=== PATIENT | male | born 1955 | race Caucasian/White ===

== ENCOUNTER 2023-12-26 13:29 | Emergency (ER) | payer MEDICARE, OTHER, SELFPAY ==
[2023-12-26 13:35] VITALS: BP 150/99
[2023-12-26 14:03] LABS: % Basophils 0.9 % (0-2); % Eosinophils 2.7 % (0-6); % Immature Granulocytes 0.3 % (0-0.5); % Lymphocytes 21.6 % (20.5-51.1); % Monocytes 7.9 % (1.7-9.3); % Neutrophils 66.6 % (42.2-75.2); Absolute Basophils 0.1 10^3/uL (0-0.2); Absolute Eosinophils 0.2 10^3/uL (0-0.7); Absolute Lymphocytes 1.9 10^3/uL (1.2-3.4); Absolute Monocytes 0.7 10^3/uL (0.1-0.6); Absolute Neutrophils 5.8 10^3/uL (1.4-6.5); Hematocrit 41.3 % (39.0-52.0); Hemoglobin 14.1 g/dL (13.0-18.0); Mean Corp Hgb Conc. 34.1 g/dL (33.0-37.0); Mean Corpuscular Hgb 32.9 pg (27.0-31.0); Mean Corpuscular Volume 96.3 fL (80.0-94.0); Mean Platelet Volume 9.9 fL (7.4-10.4); Nucleated Red Blood Cells % 0 % (-); Platelet Count 190 10^3/uL (130-400); Red Blood Cell Count 4.29 10^6/uL (4.70-6.10); Red Cell Dist. Width 12.7 % (11.5-14.5); White Blood Cell Count 8.7 10^3/uL (4.8-10.8)
[2023-12-26 14:15] LABS: ALT (SGPT) 38 U/L (0-50); AST (SGOT) 33 U/L (17-59); Albumin 4.4 g/dl (3.5-5.0); Alkaline Phosphatase 103 U/L (38-126); Blood Urea Nitrogen 14 mg/dl (9-20); Calcium 10.3 mg/dl (8.4-10.2); Carbon Dioxide 27 mmol/L (22-30); Chloride 107 mmol/L (98-107); Glucose 99 mg/dl (70-99); Potassium 4.6 mmol/L (3.5-5.1); Sodium 140 mmol/L (135-145); Total Bilirubin 0.8 mg/dl (0.2-1.3); Total Protein 6.6 g/dl (6.3-8.2); eGFR > 60.00
[2023-12-26 14:26] LABS: Troponin I 0.017 ng/ml
== END 2023-12-26 15:37 | disposition left against medical advice (07) ==
LOC: EMR 13:29
PROVIDERS: EMERGENCY PHYSICIAN Emergency Medicine
DX: R07.9 Chest pain, unspecified (principal); Z53.29 Procedure and treatment not carried out because of patient's decision for other reasons; I25.2 Old myocardial infarction
CPT/HCPCS: 80053; 84484; 85025; 93005

== ENCOUNTER → 2024-02-01 16:01 | Outpatient (REF) | payer MEDICARE, OTHER, SELFPAY | LOC: RAD 16:01 | PROVIDERS: ATTENDING PHYSICIAN Family Medicine | DX: J22 Unspecified acute lower respiratory infection (principal) | CPT/HCPCS: 71046 ==

== ENCOUNTER 2024-03-15 06:16 | Day surgery (SDC) | payer MEDICARE, OTHER, SELFPAY ==
[2024-03-15 08:30] VITALS: BMI 47.2
[2024-03-15] MEDS: NORMOSOL-R/PLASMALYTE-A 1000 IV (08:40)
[2024-03-15 08:45] VITALS: BP 163/95; BMI 47.2
[2024-03-15] MEDS: NEOMYCIN ENEMA 1 BOTTLE RECTAL (08:48)
[2024-03-15 10:45] VITALS: BP 163/95
[2024-03-15] MEDS: TORADOL 30 MG IV (11:35)
[2024-03-15 11:40] VITALS: BP 146/67
[2024-03-15 12:12] VITALS: BP 141/72
[2024-03-15 12:45] VITALS: BP 138/68
== END 2024-03-15 13:02 | disposition home or self-care (01) ==
LOC: SDS 06:16
PROVIDERS: ATTENDING PHYSICIAN Specialist
DX: C61 Malignant neoplasm of prostate (principal)
CPT/HCPCS: 55700; 76998; 88305; 88344

== ENCOUNTER → 2024-03-30 09:49 | Outpatient (REF) | payer MEDICARE, OTHER, SELFPAY | LOC: RAD 09:49 | PROVIDERS: ATTENDING PHYSICIAN Specialist; FAMILY PHYSICIAN Family Medicine | DX: C61 Malignant neoplasm of prostate (principal) | CPT/HCPCS: 78306; A9503 ==

== ENCOUNTER → 2024-04-27 17:10 | Outpatient (REF) | payer MEDICARE, OTHER, SELFPAY | LOC: MRI 3T 17:10 | PROVIDERS: ATTENDING PHYSICIAN Specialist; FAMILY PHYSICIAN Family Medicine | DX: C61 Malignant neoplasm of prostate (principal) | CPT/HCPCS: 72197; A9575 ==

== ENCOUNTER 2024-06-14 06:55 | Day surgery (SDC) | payer MEDICARE, OTHER, SELFPAY ==
[2024-06-14 07:59] VITALS: BP 152/98
[2024-06-14 08:06] VITALS: BMI 49.4
[2024-06-14 08:22] LABS: Glucose - Point of Care 106 mg/dl (70-99)
[2024-06-14 08:24] VITALS: BMI 49.4
[2024-06-14 10:24] VITALS: BP 149/98
[2024-06-14 10:30] VITALS: BP 151/88
[2024-06-14 10:45] VITALS: BP 155/99
== END 2024-06-14 11:04 | disposition home or self-care (01) ==
LOC: SDS 06:55
PROVIDERS: ATTENDING PHYSICIAN Internal Medicine Gastroenterology
DX: Z12.11 Encounter for screening for malignant neoplasm of colon (principal); D12.2 Benign neoplasm of ascending colon; D12.3 Benign neoplasm of transverse colon; K62.1 Rectal polyp; C61 Malignant neoplasm of prostate; Z86.0101 Personal history of adenomatous and serrated colon polyps; Z80.0 Family history of malignant neoplasm of digestive organs
CPT/HCPCS: 45385; 45380; 88305; 82962

== ENCOUNTER 2024-06-15 06:27 | Day surgery (SDC) | payer MEDICARE, OTHER, SELFPAY ==
[2024-06-15 10:43] VITALS: BMI 46.1
[2024-06-15 10:44] VITALS: BP 134/84; BMI 46.1
[2024-06-15 11:46] VITALS: BP 122/64
[2024-06-15 12:00] VITALS: BP 139/75
[2024-06-15 12:15] VITALS: BP 151/78
== END 2024-06-15 12:43 | disposition home or self-care (01) ==
LOC: SDS 06:27
PROVIDERS: ATTENDING PHYSICIAN Specialist
DX: D12.3 Benign neoplasm of transverse colon (principal); Z86.0101 Personal history of adenomatous and serrated colon polyps; K63.3 Ulcer of intestine
CPT/HCPCS: 45385; 88305

== ENCOUNTER → 2025-03-08 14:21 | Outpatient (REF) | payer MEDICARE, OTHER, SELFPAY | LOC: PAVMRI 14:21 | PROVIDERS: ATTENDING PHYSICIAN Anesthesiology; FAMILY PHYSICIAN Family Medicine | DX: M54.50 Low back pain, unspecified (principal) | CPT/HCPCS: 72148 ==

== ENCOUNTER → 2025-04-02 12:34 | Outpatient (REF) | payer MEDICARE, OTHER, SELFPAY | LOC: WOUND 12:34 | PROVIDERS: ATTENDING PHYSICIAN Surgery; FAMILY PHYSICIAN Family Medicine | DX: I87.311 Chronic venous hypertension (idiopathic) with ulcer of right lower extremity (principal); L97.211 Non-pressure chronic ulcer of right calf limited to breakdown of skin; E66.01 Morbid (severe) obesity due to excess calories; I25.2 Old myocardial infarction; M51.362 Other intervertebral disc degeneration, lumbar region with discogenic back pain and lower extremity pain | CPT/HCPCS: 99203 ==

== ENCOUNTER 2025-04-12 16:17 | Emergency (ER) | payer MEDICARE, OTHER, SELFPAY ==
[2025-04-12 16:29] VITALS: BP 104/70
[2025-04-12 17:21] LABS: Hematocrit 42.8 % (39.0-52.0); Hemoglobin 14.0 g/dL (13.0-18.0); Mean Corp Hgb Conc. 32.7 g/dL (33.0-37.0); Mean Corpuscular Volume 100.2 fL (80.0-94.0); Nucleated Red Blood Cells % 0 % (-); Platelet Count 191 10^3/uL (130-400); Red Cell Dist. Width 13.5 % (11.5-14.5)
[2025-04-12 17:40] LABS: ALT (SGPT) 149 U/L (0-50); AST (SGOT) 27 U/L (17-59); Albumin 4.3 g/dl (3.5-5.0); Alkaline Phosphatase 127 U/L (38-126); Blood Urea Nitrogen 18 mg/dl (9-20); Calcium 10.8 mg/dl (8.4-10.2); Carbon Dioxide 25 mmol/L (22-30); Chloride 107 mmol/L (98-107); Glucose 105 mg/dl (70-99); Potassium 4.3 mmol/L (3.5-5.1); Sodium 141 mmol/L (135-145); Total Protein 6.9 g/dl (6.3-8.2); eGFR > 60.00
[2025-04-12 18:54] VITALS: BMI 47.3
[2025-04-12 18:55] VITALS: BP 108/66
--- NOTE | 2025-04-12 19:12 | ED.GENMED ---
History of Present Illness
General
Chief Complaint: Male Genito-Urinary Symptoms
Source: patient
Exam Limitations: none
Time Seen by Provider: 04/12/25 18:25
Nursing documentation reviewed up to this point in time: agreed with
History of Present Illness
History of Present Illness:
Patient with history of kidney stones and BPH on Flomax, on aspirin 81 mg daily, presents to ED secondary to persistent hematuria associated with penile pain and frequency/urgency/dysuria, started this morning. Denies fever or chills. Patient has
had incomplete voiding sensation after urination. Denies abdominal pain. Denies nausea or vomiting. Denies trauma. Denies recent change in medications or diet. Denies previous history of similar symptoms. In the past with kidney stones,
patient has experienced flank pain, which he is not currently experiencing.
Past History
Past History
ED Past Medical History: CAD, HTN, Hypercholesterolemia, [place] (2006), Psychiatric (Anxiety), Other (Kidney stone) and Other (Chronic pain syndrome, narcotic dependent, arthritis, obesity)
ED Past Surgical History: Cardiac (PTCA with stent x2 RCA, 2006), Cholecystectomy and Orthopedic (Bilateral knee surgery, right femoral plate)
Social History
Tobacco: Non-smoker
Alcohol: None
Personal: Single
Living: with family (Sister.)
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
Family History
Family History: CAD
Review of Systems
Review of Systems
Allergies reviewed?: Yes
All Other Systems: ROS reviewed and negative except as documented in HPI and ROS
Constitutional: Reports no symptoms; Denies fever
ABD/GI: Denies abdominal pain or vomiting
: Reports dysuria, frequency, difficulty voiding and bleeding
Skin: Reports no symptoms
Neurological: Reports no symptoms
Phy Exam
Physical Exam
Physical Exam:
Physical Exam
General: mild distress, not acutely ill. afebrile
Head: nc/at. eomi
Neck: supple. normal range of motion
Abdomen: normal bowel sounds. not tender.
Neuro: alert and oriented x 3. no focal neurological deficits
Skin: no rash
Psychiatric: well kept. interactive and cooperative
Extremities: no edema. no calf tenderness.
Course
Orders/Labs/Results
Orders:
Orders
04/12/25 16:50
Complete Blood Count/With Diff Urgent
Comprehensive Metabolic Panel Urgent
04/12/25 19:00
Bladder Scan- Treatment ONCE
04/12/25 19:26
Gregory Placement- Treatment ONCE
Reason for insertion: Outlet obstruction
04/12/25 19:35
Lidocaine 2% [Lidocaine Uro-Jet 2%] 1 syringe .ROUTE .[facility]
04/12/25 19:58
Urinalysis Reflex To Culture Urgent
Date Specimen was Collected: 04/12/25
Time Specimen was Collected: 16:30
Urine Microscopic Reflex Cult Urgent
Urine Culture Urgent
YESIKA Source: U
Specimen Description:
Date Specimen was Collected: 04/12/25
Time Specimen was Collected: 16:30
04/12/25 20:17
Oxycodone [Roxicodone] 10 mg PO NOW STA
04/12/25 21:43
Cefdinir [Omnicef] 300 mg PO NOW STA
04/12/25 21:52
Phenazopyridine HCl [Pyridium] 200 mg PO NOW STA
04/12/25 22:12
Oxybutynin Chloride [Ditropan] 5 mg PO NOW STA
04/12/25 22:15
Oxycodone [Roxicodone] 10 mg PO NOW STA
Abnormal Lab Results
04/12/25 04/12/25
16:50 19:58
RBC 4.27 L 10^6/uL
(4.70-6.10)
MCV 100.2 H fL
(80.0-94.0)
MCH 32.8 H pg
(27.0-31.0)
MCHC 32.7 L g/dL
(33.0-37.0)
Absolute Lymphs (auto) 0.9 L 10^3/uL
(1.2-3.4)
Neutrophils % 76.3 H %
(42.2-75.2)
Lymphocytes % 13.9 L %
(20.5-51.1)
Glucose 105 H mg/dl
(70-99)
Calcium 10.8 H mg/dl
(8.4-10.2)
ALT 149 H U/L
(0-50)
Alkaline Phosphatase 127 H U/L
(38-126)
Ur Occult Blood Reflex 4+ A
(Negative)
Leukocyte Esterase Rfl 1+ A
(Negative)
Urine RBC 70-80 A /HPF
(0-2)
Urine Albumin (Reflex) 2+ A
(Neg - Trace)
04/12/25 16:50
04/12/25 16:50
Vital Signs
Initial and Last Documented VS:
Initial Vital Signs
Temp
98.1 F
04/12/25 16:27
Last Documented Vital Signs
Temp Pulse Resp BP Pulse Ox
98.1 F 68 20 120/75 96
04/12/25 16:27 04/12/25 22:02 04/12/25 22:02 04/12/25 22:02 04/12/25 22:02
MDM/Problems Addressed
MDM/Problems Addressed:
CBI started in ED secondary to concern for urinary retention secondary to an outlet obstruction. Fortunately, after insertion of CBI, only clear drainage noted in the catheter, without any disruption with continuous flow. Urinalysis with RBCs,
without any bacteria. Difficult to exclude potential infection, i.e. prostatitis. No indication to continue Gregory catheter/CBI at this time. As such, CBI will be discontinued and patient will be started on Omnicef, with recommendation to
follow-up with his urology as an outpatient. Return precautions provided, i.e. fever/chills/vomiting/inability to urinate. Patient expresses understanding, at time of discharge, to the care of his family.
*Pulse Oximetry
SaO2: 95
Oxygen Mode of Delivery: Room air
Patient hypoxic: no
*Critical Care Note
Total Time (30-74mins, 75-104mins- exclusive of procedures): Not Applicable
ED Attending Note
-
Portions of this chart may have been created with voice recognition software.� Occasional wrong word or��sound alike� substitutions may have occurred due to the inherent limitations of voice recognition software.
Discharge Plan
Departure
Patient Disposition: Home (Routine Discharge)
Date of Disposition: 04/12/25
Time of Disposition: 21:36
Patient with high blood pressure during this ER visit?: No
Condition: Good
Discharge Problem:
Acute prostatitis
Instructions: Bacterial prostatitis
Prescriptions:
New
cefdinir 300 mg capsule
300 mg PO BID Qty: 13 0RF
phenazopyridine [Pyridium] 100 mg tablet
100 mg PO TID PRN (Reason: Pain) Qty: 14 0RF
No Action
aspirin 81 MG tablet,delayed release (DR/EC)
81 mg PO DAILY Qty: 30 11RF
metoprolol tartrate 25 MG tablet
25 mg PO BID Qty: 60 11RF
venlafaxine [Effexor XR] 150 MG capsule,extended release 24hr
150 mg PO DAILY
oxycodone 10 MG tablet
10 mg PO 5/D
Patient Comments:
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
Ubrelvy 100 MG tablet
100 mg PO DAILYPRN PRN (Reason: migraines)
atorvastatin 80 mg Tablet
80 mg PO HS
lisinopril 5 mg Tablet
5 mg PO DAILY
Emgality Pen 120 mg/mL Pen Injector
120 mg SC QMONTH
Wegovy
1 dose SC FR
tamsulosin 0.4 MG capsule
0.4 mg PO DAILY
polyethylene glycol 3350 [Miralax] 17 gram Powder In Packet
17 g PO DAILY
acetaminophen 500 mg Tablet
1,000 mg PO Q6H PRN (Reason: pain)
Wegovy 0.25 mg/0.5 mL Pen Injector
0.25 mg SC QWEEK
Referrals:
Rob Drummond DO [Family Provider, Family Practice]
Activity Restrictions/Additional Instructions:
As discussed, please follow-up with your primary care physician and/or urologist for further evaluation and treatment. Your prescription has been sent electronically to [facility] pharmacy in [place].
Interventions
Interventions:
*Risk Screen - Suicide Last Done: 04/12/25 16:29
*General Assessment Last Done: 04/12/25 16:29
*Neglect/Abuse Screening Last Done: 04/12/25 16:29
*ED COVID-19 Vaccine History Last Done: 04/12/25 16:29
*ED Influenza Vaccine History Last Done: 04/12/25 16:29
*Nursing Disposition Last Done: 04/12/25 22:33
ED-Male Genitourinary Assessment Last Done: 04/12/25 18:58
Discharge Date and Time
Discharge Date/Time: 04/12/25 22:37
Print Language: FAROESE
[2025-04-12 20:05] LABS: Urine Character Slightly Cloudy (Clear)
[2025-04-12 20:15] LABS: Urine Red Blood Cell 70-80 /HPF (0-2); Urine Squamous Cell 0-2 /LPF (Few)
[2025-04-12] MEDS: ROXICODONE 10 MG PO ×2 (20:49→22:22)
[2025-04-12] MEDS: OMNICEF 300 MG PO (22:01)
[2025-04-12 22:02] VITALS: BP 120/75
== END 2025-04-12 22:37 | disposition home or self-care (01) ==
LOC: EMR 16:17
PROVIDERS: Emergency Medicine; EMERGENCY PHYSICIAN Emergency Medicine; FAMILY PHYSICIAN Family Medicine
DX: N41.0 Acute prostatitis (principal); I25.10 Atherosclerotic heart disease of native coronary artery without angina pectoris; I10 Essential (primary) hypertension; E78.00 Pure hypercholesterolemia, unspecified; I25.2 Old myocardial infarction; F41.9 Anxiety disorder, unspecified; E66.9 Obesity, unspecified; F11.20 Opioid dependence, uncomplicated; N40.0 Benign prostatic hyperplasia without lower urinary tract symptoms; Z82.49 Family history of ischemic heart disease and other diseases of the circulatory system; Z87.442 Personal history of urinary calculi; Z90.49 Acquired absence of other specified parts of digestive tract; Z95.5 Presence of coronary angioplasty implant and graft
CPT/HCPCS: 99283; 80053; 81003; 81015; 85025; 87086; 93922; 93925; 93970

== ENCOUNTER 2025-04-14 18:24 | Inpatient (IN) | payer MEDICARE, OTHER, SELFPAY ==
[2025-04-14] VITALS (20 sets, daily range): BP systolic 72–122; BP diastolic 35–87; BMI 49.8
--- NOTE | 2025-04-14 16:03 | ED.GENMED ---
History of Present Illness
<Krysta Hill PA-C - Last Filed: 04/14/25 17:54>
General
Chief Complaint: Male Genito-Urinary Symptoms
Source: patient and significant other
Exam Limitations: clinical condition
Time Seen by Provider: 04/14/25 15:37
Nursing documentation reviewed up to this point in time: agreed with
History of Present Illness
History of Present Illness:
see MDM
Past History
<Krysta Hill PA-C - Last Filed: 04/14/25 17:54>
Past History
ED Past Medical History: CAD, HTN, Hypercholesterolemia, [place] (2006), Psychiatric (Anxiety), Other (Kidney stone) and Other (Chronic pain syndrome, narcotic dependent, arthritis, obesity)
ED Past Surgical History: Cardiac (PTCA with stent x2 RCA, 2006), Cholecystectomy and Orthopedic (Bilateral knee surgery, right femoral plate)
Social History
Tobacco: Non-smoker
Alcohol: None
Personal: Single
Living: with family (Sister.)
Employment: Employed ([employer])
Family History
Family History: CAD
Phy Exam
<BRYAN Brewer Last Filed: 04/14/25 17:54>
Physical Exam
Physical Exam:
see MDM
Course
<Krysta Hill PA-C - Last Filed: 04/14/25 17:54>
Orders/Labs/Results
Orders:
Orders
04/14/25 15:46
Electrocardiogram (*1) Urgent
Reason for Study: Other
Other Reason for Exam: Possible Sepsis
Cardiac Monitoring- Treatment ONCE
EKG- Treatment ONCE
IV Insert/Care/Rem.- Treatment PRN
Straight cath- Treatment ONCE
O2 Therapy [RESP] Urgent
Titrate/Wean O2 to maintain O2 sat greater than (%): 93
Special Instructions: TO MAINTAIN CONTINUOUS O2 SATS > OR = 93%
Pulse Ox/cont/shift [RESP] Urgent
Quantity: 1
Special Instructions: CONTINUOUS
04/14/25 15:49
Complete Blood Count/With Diff Urgent
Comprehensive Metabolic Panel Urgent
Lactic Acid Q4H
Comment: ON ICE, CANCEL 2ND ORDER IF FIRST LACTIC ACID LEVEL <2
Urinalysis Reflex To Culture Urgent
Date Specimen was Collected: 04/14/25
Time Specimen was Collected: 15:46
Urine Microscopic Reflex Cult Urgent
Urine Culture Urgent
YESIKA Source: U
Specimen Description:
Date Specimen was Collected: 04/14/25
Time Specimen was Collected: 15:46
04/14/25 15:50
Blood Culture Q20M
YESIKA Source: Blood/Venous
Specimen Description:
Comment: Urgent from separate sites. If patient screens positive for possible sepsis
04/14/25 15:53
CT Abd/pel Without Iv Or Oral Urgent
Comment:
Reason For Exam: hematuria, urinary retention, hypotension
0.9% Sodium Chloride 1000 ml [Nss] 1,000 ml IV BOLUS
04/14/25 16:20
Blood Culture Q20M
YESIKA Source: Blood/Venous
Specimen Description:
Comment: Urgent from separate sites. If patient screens positive for possible sepsis
04/14/25 16:26
0.9% Sodium Chloride 1000 ml [Nss] 1,000 ml IV BOLUS
04/14/25 17:04
0.9% Sodium Chloride 1000 ml [Nss] 3,000 ml IV NOW STA
04/14/25 17:10
CefTRIAXone [Rocephin] 2,000 mg IV NOW STA
04/14/25 17:11
CR Chest Portable - 1 View Urgent
Comment:
Reason For Exam: septic shock
Reason Study Needs to be Portable: Patient Unstable
04/14/25 17:27
Sterile Water [Sterile Water For Injection] 20 ml .ROUTE .STK-MED
04/14/25 17:30
NORepinephrine 4 MG/250 ML [Levophed] 4 mg in 250 ml IV PER PROTOCOL
Initial dose in mcg/min, then titrate:: 2
Titrate to keep:: MAP > 65 mmHg
Titrate by mcg/min:: 1-2 mcg/min
Frequency of titrations (minutes):: 5
Maximum dose in ICU in mcg/min:: 30
Maximum dose in IMU in mcg/min:: 8
Maximum dose in IVU in mcg/min:: 4
Begin to taper infusion when:: Remained at goal for 4hrs
Taper by mcg/min:: 1-2 mcg/min
Frequency of taper (minutes) if patient maintains goal:: 30
Taper to off?: Yes
If infusion off & no longer maintaining goal:: Contact Provider
04/14/25 17:37
Admit/Transfer Patient As Directed
Co-Sign Provider:
Level of Care: Inpatient admission
Assign to:: ICU
Physician / Group: [facility]
Diagnosis: Severe Sepsis, UTI, Obstructing Stone
Reason for Hospitalization: IVFs, IV abx
Expected length of stay greater than two midnights?: Yes
ELOS- Estimated Length of Stay in days: 3
I certify the patient meets the requirements for IP care: Yes
PRN Pain Medication Management As Directed
May give lesser potent ordered pain med per pt: Yes
preference::
Protocol:: Medication orders for pain may be administered in a
manner that supports deferring to patient preference
when the pt is:
- Requesting an ordered lesser potent pain medication.
Least to most potent pain medications are defined
as: acetaminophen < NSAID < tramadol < opioids
(morphine, oxycodone, hydromorphone).
- Requesting a lesser dose of the same medication IF
ORDERED.
- Requesting a less intrusive route of administration
if both routes are prescribed by the provider (PO <
IV).
04/14/25 17:39
Code Status As Directed
Resuscitation Status: Full Code
04/14/25 20:00
Lactic Acid Q4H
Comment: ON ICE, CANCEL 2ND ORDER IF FIRST LACTIC ACID LEVEL <2
Abnormal Lab Results
04/14/25
15:49
WBC 11.1 H 10^3/uL
(4.8-10.8)
RBC 4.03 L 10^6/uL
(4.70-6.10)
Hgb 12.8 L g/dL
(13.0-18.0)
Hct 38.7 L %
(39.0-52.0)
MCV 96.0 H fL
(80.0-94.0)
MCH 31.8 H pg
(27.0-31.0)
Abs Immat Gran (auto) 0.1 H 10^3/uL
(0-0.05)
Absolute Neuts (auto) 9.0 H 10^3/uL
(1.4-6.5)
Absolute Lymphs (auto) 0.7 L 10^3/uL
(1.2-3.4)
Absolute Monos (auto) 1.2 H 10^3/uL
(0.1-0.6)
Neutrophils % 81.6 H %
(42.2-75.2)
Lymphocytes % 6.2 L %
(20.5-51.1)
Monocytes % 11.1 H %
(1.7-9.3)
BUN 45 H mg/dl
(9-20)
Creatinine 3.6 H mg/dL
(0.7-1.3)
Lactic Acid 3.4 H mmol/L
(0.7-2.0)
Calcium 10.4 H mg/dl
(8.4-10.2)
Total Bilirubin 1.5 H mg/dl
(0.2-1.3)
ALT 85 H U/L
(0-50)
Ur Occult Blood Reflex 4+ A
(Negative)
Urine Nitrite (Reflex) Positive A
(Negative)
Urine Bilirubin 2+ A
(Negative)
Urine Urobilinogen 3+ A
(Neg - 1+)
Leukocyte Esterase Rfl 2+ A
(Negative)
Urine RBC >100 A /HPF
(0-2)
Urine WBC (Reflex) 90-100 A /HPF
(0-5)
Urine Bacteria (Reflex) Moderate A
(Negative)
Urine Albumin (Reflex) 2+ A
(Neg - Trace)
04/14/25 15:49
04/14/25 15:49
Vital Signs
Initial and Last Documented VS:
Initial Vital Signs
Temp Pulse Resp BP Pulse Ox
37.6 C 70 18 72/42 87
04/14/25 15:22 04/14/25 15:22 04/14/25 15:22 04/14/25 15:22 04/14/25 15:22
Last Documented Vital Signs
Temp Pulse Resp BP Pulse Ox
37.6 C 66 20 95/49 92
04/14/25 15:22 04/14/25 16:00 04/14/25 16:00 04/14/25 16:00 04/14/25 16:04
Roblt;Marck Gloria, - Last Filed: 04/14/25 17:08>
Orders/Labs/Results
Orders:
Orders
04/14/25 15:46
Electrocardiogram (*1) Urgent
Reason for Study: Other
Other Reason for Exam: Possible Sepsis
Cardiac Monitoring- Treatment ONCE
EKG- Treatment ONCE
IV Insert/Care/Rem.- Treatment PRN
Straight cath- Treatment ONCE
O2 Therapy [RESP] Urgent
Titrate/Wean O2 to maintain O2 sat greater than (%): 93
Special Instructions: TO MAINTAIN CONTINUOUS O2 SATS > OR = 93%
Pulse Ox/cont/shift [RESP] Urgent
Quantity: 1
Special Instructions: CONTINUOUS
04/14/25 15:49
Complete Blood Count/With Diff Urgent
Comprehensive Metabolic Panel Urgent
Lactic Acid Q4H
Comment: ON ICE, CANCEL 2ND ORDER IF FIRST LACTIC ACID LEVEL <2
Urinalysis Reflex To Culture Urgent
Date Specimen was Collected: 04/14/25
Time Specimen was Collected: 15:46
Urine Microscopic Reflex Cult Urgent
Urine Culture Urgent
YESIKA Source: U
Specimen Description:
Date Specimen was Collected: 04/14/25
Time Specimen was Collected: 15:46
04/14/25 15:50
Blood Culture Q20M
YESIKA Source: Blood/Venous
Specimen Description:
Comment: Urgent from separate sites. If patient screens positive for possible sepsis
04/14/25 15:53
CT Abd/pel Without Iv Or Oral Urgent
Comment:
Reason For Exam: hematuria, urinary retention, hypotension
0.9% Sodium Chloride 1000 ml [Nss] 1,000 ml IV BOLUS
04/14/25 16:20
Blood Culture Q20M
YESIKA Source: Blood/Venous
Specimen Description:
Comment: Urgent from separate sites. If patient screens positive for possible sepsis
04/14/25 16:26
0.9% Sodium Chloride 1000 ml [Nss] 1,000 ml IV BOLUS
04/14/25 17:04
0.9% Sodium Chloride 1000 ml [Nss] 3,000 ml IV NOW STA
04/14/25 17:10
CefTRIAXone [Rocephin] 2,000 mg IV NOW STA
04/14/25 17:11
CR Chest Portable - 1 View Urgent
Comment:
Reason For Exam: septic shock
Reason Study Needs to be Portable: Patient Unstable
04/14/25 17:27
Sterile Water [Sterile Water For Injection] 20 ml .ROUTE .STK-MED
04/14/25 17:30
NORepinephrine 4 MG/250 ML [Levophed] 4 mg in 250 ml IV PER PROTOCOL
Initial dose in mcg/min, then titrate:: 2
Titrate to keep:: MAP > 65 mmHg
Titrate by mcg/min:: 1-2 mcg/min
Frequency of titrations (minutes):: 5
Maximum dose in ICU in mcg/min:: 30
Maximum dose in IMU in mcg/min:: 8
Maximum dose in IVU in mcg/min:: 4
Begin to taper infusion when:: Remained at goal for 4hrs
Taper by mcg/min:: 1-2 mcg/min
Frequency of taper (minutes) if patient maintains goal:: 30
Taper to off?: Yes
If infusion off & no longer maintaining goal:: Contact Provider
04/14/25 17:37
Admit/Transfer Patient As Directed
Co-Sign Provider:
Level of Care: Inpatient admission
Assign to:: ICU
Physician / Group: [facility]
Diagnosis: Severe Sepsis, UTI, Obstructing Stone
Reason for Hospitalization: IVFs, IV abx
Expected length of stay greater than two midnights?: Yes
ELOS- Estimated Length of Stay in days: 3
I certify the patient meets the requirements for IP care: Yes
PRN Pain Medication Management As Directed
May give lesser potent ordered pain med per pt: Yes
preference::
Protocol:: Medication orders for pain may be administered in a
manner that supports deferring to patient preference
when the pt is:
- Requesting an ordered lesser potent pain medication.
Least to most potent pain medications are defined
as: acetaminophen < NSAID < tramadol < opioids
(morphine, oxycodone, hydromorphone).
- Requesting a lesser dose of the same medication IF
ORDERED.
- Requesting a less intrusive route of administration
if both routes are prescribed by the provider (PO <
IV).
04/14/25 17:39
Code Status As Directed
Resuscitation Status: Full Code
04/14/25 20:00
Lactic Acid Q4H
Comment: ON ICE, CANCEL 2ND ORDER IF FIRST LACTIC ACID LEVEL <2
Abnormal Lab Results
04/14/25
15:49
WBC 11.1 H 10^3/uL
(4.8-10.8)
RBC 4.03 L 10^6/uL
(4.70-6.10)
Hgb 12.8 L g/dL
(13.0-18.0)
Hct 38.7 L %
(39.0-52.0)
MCV 96.0 H fL
(80.0-94.0)
MCH 31.8 H pg
(27.0-31.0)
Abs Immat Gran (auto) 0.1 H 10^3/uL
(0-0.05)
Absolute Neuts (auto) 9.0 H 10^3/uL
(1.4-6.5)
Absolute Lymphs (auto) 0.7 L 10^3/uL
(1.2-3.4)
Absolute Monos (auto) 1.2 H 10^3/uL
(0.1-0.6)
Neutrophils % 81.6 H %
(42.2-75.2)
Lymphocytes % 6.2 L %
(20.5-51.1)
Monocytes % 11.1 H %
(1.7-9.3)
BUN 45 H mg/dl
(9-20)
Creatinine 3.6 H mg/dL
(0.7-1.3)
Lactic Acid 3.4 H mmol/L
(0.7-2.0)
Calcium 10.4 H mg/dl
(8.4-10.2)
Total Bilirubin 1.5 H mg/dl
(0.2-1.3)
ALT 85 H U/L
(0-50)
Ur Occult Blood Reflex 4+ A
(Negative)
Urine Nitrite (Reflex) Positive A
(Negative)
Urine Bilirubin 2+ A
(Negative)
Urine Urobilinogen 3+ A
(Neg - 1+)
Leukocyte Esterase Rfl 2+ A
(Negative)
Urine RBC >100 A /HPF
(0-2)
Urine WBC (Reflex) 90-100 A /HPF
(0-5)
Urine Bacteria (Reflex) Moderate A
(Negative)
Urine Albumin (Reflex) 2+ A
(Neg - Trace)
04/14/25 15:49
04/14/25 15:49
Vital Signs
Initial and Last Documented VS:
Initial Vital Signs
Temp Pulse Resp BP Pulse Ox
37.6 C 70 18 72/42 87
04/14/25 15:22 04/14/25 15:22 04/14/25 15:22 04/14/25 15:22 04/14/25 15:22
Last Documented Vital Signs
Temp Pulse Resp BP Pulse Ox
37.6 C 66 20 95/49 92
04/14/25 15:22 04/14/25 16:00 04/14/25 16:00 04/14/25 16:00 04/14/25 16:04
<Krysta Hill PA-C - Last Filed: 04/14/25 17:54>
MDM/Problems Addressed
MDM/Problems Addressed:
Note:
CHIEF COMPLAINT(S)
Abdominal pain and inability to urinate.
HISTORY OF PRESENT ILLNESS
The patient is a 69-year-old male presenting with abdominal pain and difficulty urinating. He reports experiencing pain in the lower abdomen and has not been able to urinate effectively, with the last urination being unclear, sometime yesterday. The
symptoms began prior to a recent Emergency Department visit two days ago when he presented with hematuria and retention. During that visit, a Elizalde catheter was placed, and his bladder was irrigated. the elizalde was pulled prior to discharge and The
patient was able to urinate independently afterward but experienced increasing discomfort at home. He describes sitting on the toilet with an urge to urinate but being unable to do so, accompanied by significant pain. The patient denies chest pain
and dyspnea but reports general weakness and confusion, particularly when upright. He has been in a lot of discomfort and describes his belly as painful and slightly red. he is also on pyridium and cefdinir
There is a past history of kidney stones, but he was not diagnosed with a stone during the last visit. He denies any significant cardiac history but takes low-dose aspirin.
denies fever
says he has been weka and lightheaded and confused today
PAST MEDICAL AND SURGICAL HISTORY
The patient has undergone 26 radiation treatments for prostate cancer in the past. He routinely checks prostate-specific antigen levels.
CHRONIC MEDICAL CONDITIONS SIGNIFICANTLY AFFECTING CARE
History of prostate cancer, previously treated with radiation.
SOCIAL DETERMINANTS AFFECTING HEALTH
The patient has a history of alcohol use.
PHYSICAL EXAM
GENERAL: Alert, pale, weak
Neck: supple
CARDIAC: Regular rate and rhythm .
LUNGS: Clear breath sounds bilaterally, no acute respiratory distress, no wheezes/rales/rhonchi
ABDOMEN: Soft, obese, diffuse tenderness, umbilical hernia with some blood in the umbilicus region, diffuse mildly tender normal bowel sounds,
: normal inspection of region
nontender testicles b/l
no rashes
NEUROLOGICAL: Alert and oriented, no focal neuro deficits
SKIN: Warm and dry, skin intact.
PSYCH: Slightly off, sluggish to respond
Nursing notes reviewed and vital signs reviewed.
PLAN
1. Reinsertion of a Elizalde catheter to assist with urination.
2. Perform an abdominal ultrasound to check for potential kidney stones or urinary obstruction.
3. Monitor kidney function and overall hydration status.
4. Consider hospital admission due to low blood pressure, low oxygen levels, and altered mental status.
DIFFERENTIAL DIAGNOSIS
The Differential Diagnosis includes, in no particular order and is not limited to:
1. Urinary retention.
2. Bladder outlet obstruction.
3. Acute kidney injury.
4. Urolithiasis.
5. Urinary tract infection.
6. Prostatitis.
7. Lower urinary tract obstruction.
8. Dehydration.
9. Post-obstructive diuresis.
10. Electrolyte imbalance.
04/14/25 - 17:24
Patient presented for change in mental status, weakness generalized in addition to urinary retention after just being in the hospital 2 days ago for acute urinary retention
Elizalde was immediately placed and drained 1 L of urine which was orange likely due to the Pyridium. He is in acute renal failure from creatinine that was normal to 3.5 today. He has a lactic acidosis 3.5 but a white count of 111.1. Patient's
urinalysis is positive which could be contaminated from the Pyridium, the culture from 2 days ago was no growth.
Patient is quite sick
His CT scan shows bilateral hydronephrosis questionable stone either in his bladder and the right UVJ region. I spoke with the urologist on-call who saw the patient recommended IV fluids, antibiotics, n.p.o. after midnight. He is not recommending
nephrostomy tubes and does not believe that these bladder stones are new
Currently the patient blood pressure has improved with some IV fluids up to 100 systolic, he is mentating about the same which is slow to respond but appropriate. He was mildly hypoxic and he was put on oxygen. I did order a chest x-ray which was
unremarkable. He has no history of CHF so he will get sepsis fluids due to his lactic acid being elevated. Patient was signed out to the hospitalist service, he will likely need ICU level care
<Krysta Hill PA-C - Last Filed: 04/14/25 17:54>
*Pulse Oximetry
SaO2: 92
Nasal Cannula flow liters per minute: 2
Oxygen Mode of Delivery: Room air
Patient hypoxic: yes (88)
*Critical Care Note
Total Time (30-74mins, 75-104mins- exclusive of procedures): Not Applicable
ED Attending Note
<Krysta Hill PA-C - Last Filed: 04/14/25 17:54>
-
Portions of this chart may have been created with voice recognition software.� Occasional wrong word or��sound alike� substitutions may have occurred due to the inherent limitations of voice recognition software.
<Marck Gloria DO - Last Filed: 04/14/25 17:08>
ED Attending Note
Patient seen and examined by attending physician: Yes
I performed the substantive portion of visit, reviewed & personally made and approve the management plan that is documented in note by myself or JEANNETTE.: Yes
ED Attending Note:
I evaluated the patient at bedside. The patient has fair mental status with some degree of confusion and appears generally weak and debilitated. He has been hypotensive. Giving IV fluids.
Discharge Plan
Departure
Patient Disposition: Admit
Date of Disposition: 04/14/25
Time of Disposition: 17:21
Admit to: ICU
Presentation/result/management discussed w/ accepting MD/DO: Hospitalist
Condition: Fair
Covid-19: Not Applicable
Discharge Problem:
Acute urinary retention, Acute renal failure, Septic shock
Prescriptions:
No Action
aspirin 81 MG tablet,delayed release (DR/EC)
81 mg PO DAILY Qty: 30 11RF
metoprolol tartrate 25 MG tablet
25 mg PO BID Qty: 60 11RF
venlafaxine [Effexor XR] 150 MG capsule,extended release 24hr
150 mg PO BID
oxycodone 10 MG tablet
10 mg PO 6XD
Patient Comments:
last fill 03/30/25 #180
Ubrelvy 100 MG tablet
100 mg PO DAILYPRN PRN (Reason: migraines)
atorvastatin 80 mg Tablet
80 mg PO HS
lisinopril 5 mg Tablet
5 mg PO DAILY
tamsulosin 0.4 MG capsule
0.4 mg PO BID
cefdinir 300 mg capsule
300 mg PO BID Qty: 13 0RF
Rx Instructions:
started 04/13/25 for 7 days
phenazopyridine [Pyridium] 100 mg tablet
100 mg PO TID PRN (Reason: Pain) Qty: 14 0RF
gabapentin 300 mg capsule
300 mg PO BID
furosemide 20 mg tablet
20 mg PO DAILY
Referrals:
Rob Drummond DO [Family Provider, Family Practice]
Interventions
Interventions:
*Risk Screen - Suicide Last Done: 04/14/25 15:22
*General Assessment Last Done: 04/14/25 15:22
*Neglect/Abuse Screening Last Done: 04/14/25 15:22
*ED- Fall Risk Assessment Last Done: 04/14/25 15:22
*ED COVID-19 Vaccine History Last Done: 04/14/25 15:22
*ED Influenza Vaccine History Last Done: 04/14/25 15:22
ED-Male Genitourinary Assessment Last Done: 04/14/25 16:00
Discharge Date and Time
Print Language: SAUDI ARABIAN
[2025-04-14 16:14] LABS: Hematocrit 38.7 % (39.0-52.0); Hemoglobin 12.8 g/dL (13.0-18.0); Mean Corp Hgb Conc. 33.1 g/dL (33.0-37.0); Mean Corpuscular Volume 96.0 fL (80.0-94.0); Nucleated Red Blood Cells % 0 % (-); Platelet Count 180 10^3/uL (130-400); Red Cell Dist. Width 13.4 % (11.5-14.5)
[2025-04-14 16:24] LABS: ALT (SGPT) 85 U/L (0-50); AST (SGOT) 46 U/L (17-59); Albumin 3.9 g/dl (3.5-5.0); Alkaline Phosphatase 120 U/L (38-126); Blood Urea Nitrogen 45 mg/dl (9-20); Calcium 10.4 mg/dl (8.4-10.2); Carbon Dioxide 23 mmol/L (22-30); Chloride 103 mmol/L (98-107); Glucose 94 mg/dl (70-99); Potassium 4.6 mmol/L (3.5-5.1); Sodium 137 mmol/L (135-145); Total Protein 6.3 g/dl (6.3-8.2); eGFR 17.74
[2025-04-14 16:35] LABS: Urine Character Cloudy (Clear)
[2025-04-14] MEDS: NSS 1000 IV ×3 (17:09→19:57)
[2025-04-14 17:11] LABS: Urine Squamous Cell 0-2 /LPF (Few)
[2025-04-14] MEDS: NSS 3000 ML IV (17:11)
[2025-04-14 17:12] LABS: Urine Red Blood Cell >100 /HPF (0-2); Urine White Cell 90-100 /HPF (0-5)
--- NOTE | 2025-04-14 17:22 | HPS.HSE ---
Addendum entered and electronically signed by Mayra Luther MD 04/14/25 18:41:
This is an addendum to the H&P written by Bailey Alonso on 04/14/2025. �Patient seen and examined independently with PA.
69-year-old male past medical history of prostate cancer status post radiation in September, nephrolithiasis, BPH, CAD status post stents, hypertension, hypercholesteremia, anxiety, chronic pain, presenting for abdominal pain, blood in the urine,
decreased urination, urinary frequency, burning starting 2 days ago.
He came to emergency room 2 days ago for similar symptoms and was given antibiotic and Prodium and discharged.
Vital signs show blood pressure 72/42.
Labs show leukocytosis. �Creatinine of 3.6. �Lactic acid 3.4. �Urinalysis consistent with UTI.
CT abdomen pelvis shows mild bilateral hydronephrosis, right greater than left. �Collapsed urinary bladder with a Gregory catheter in place. �2 calculi in the right lateral urinary bladder lumen near the right ureterovesicular junction may be partial
obstructing the right ureter.
Patient with severe sepsis secondary to obstructive nephrolithiasis with likely partial obstruction of the right ureter and DANIA.
Gregory catheter placed. IV fluids, urine culture, blood cultures, trend lactate, ceftriaxone. �Levophed if necessary. �Hold aspirin. �Urology consulted.
Original Note:
Family Physician
-
Family Physician: Rob Drummond
Chief Complaint
-
Confusion
History of Present Illness
Patient is a 69 y/o male past medical history of CAD, HTN, Hyperlipidemia, and Prostate Cancer who presents with confusion. Patient was initially seen here two days ago with urinary symptoms. He was started on Ceftin and Pyridium for a urinary
tract infection. Today he was brought in by his sister for confusion. Patient reports persistent difficulty urinating. He reports abdomina discomfort as well as some blood in the urine. He denies any fevers.
Medical History
Past Medical History
Past Medical History: Reports Other
Additional Past Medical History:
Coronary Artery Disease s/p Stent
Essential Hypertension
Hyperlipidemia
Prostate Cancer s/p Radiation
Migraine Headaches
Chronic Pain with Opioid Dependence
Anxiety / Depression
Morbid Obesity due to Excess Calories
Past Surgical History: Reports Other
Additional Past Surgical History:
Cholecystectomy
Prostate Biopsy
Bilateral Knee Surgery
Right Femur ORIF
Social History
Tobacco: Non-smoker
Family History
Family History: Not pertinent
Allergies / Home Medications
Allergies reflects when Allergies were last updated in [facility].
Home Medications with original date entered in [facility]
Allergy/Medication List:
Allergies
Allergy/AdvReac Type Severity Reaction Status Date / Time
No Known Allergies Allergy Verified 04/14/25 15:29
Home Medications
aspirin 81 mg tablet,delayed release 81 mg PO DAILY ##30 06/16/13
metoprolol tartrate 25 mg tablet 25 mg PO BID ##60 06/16/13
oxycodone 10 mg tablet 10 mg PO 6XD 01/09/19
venlafaxine 150 mg capsule,extended release 24 hr (Effexor XR) 150 mg PO BID 01/09/19
ubrogepant 100 mg tablet (Ubrelvy) 100 mg PO DAILYPRN PRN migraines 04/28/21
atorvastatin 80 mg tablet 80 mg PO HS 03/13/24
lisinopril 5 mg tablet 5 mg PO DAILY 03/13/24
tamsulosin 0.4 mg capsule 0.4 mg PO BID 03/13/24
cefdinir 300 mg capsule 300 mg PO BID #13 caps 04/12/25
phenazopyridine 100 mg tablet (Pyridium) 100 mg PO TID PRN Pain #14 tabs 04/12/25
furosemide 20 mg tablet 20 mg PO DAILY 04/14/25
gabapentin 300 mg capsule 300 mg PO BID 04/14/25
Review of Systems
-
A 12 point ROS was completed and negative except as noted: Yes
Constitutional: Denies Fever
Respiratory: Denies Cough or Trouble Breathing
Cardiac: Denies Chest Pain
Physical Exam
Vital Signs
Vital Signs
Temp Pulse Resp BP Pulse Ox
99.6 F 66 20 95/49 92
04/14/25 15:22 04/14/25 16:00 04/14/25 16:00 04/14/25 16:00 04/14/25 16:04
Physical Exam
General: Comfortable, Conversant and Morbidly Obese
HEENT: Anicteric and Moist mucous membranes
Respiratory: Clear and Non Labored Respirations
Cardiac: S1/S2 and Regular Rhythm
GI: Soft and Non Tender
Genito-urinary: Gregory ([place] urine present in Gregory tubing)
Musculoskeletal: No Clubbing and No Cyanosis
Skin: Warm and Dry
Neuro: Awake, Alert, Oriented and Nonfocal/grossly intact
Psych: Calm
Laboratory Results
-
04/14/25 15:49
04/14/25 15:49
Laboratory Results
Lactic Acid 3.4 mmol/L (0.7-2.0) H 04/14/25 15:49
Total Bilirubin 1.5 mg/dl (0.2-1.3) H 04/14/25 15:49
AST 46 U/L (17-59) 04/14/25 15:49
ALT 85 U/L (0-50) H 04/14/25 15:49
Alkaline Phosphatase 120 U/L (38-126) 04/14/25 15:49
Abd/Pelvis CT:
Mild bilateral hydronephrosis, right greater than left. Collapsed urinary bladder with a Gregory catheter in place. Two calculi in the right lateral urinary bladder lumen near the right ureterovesicular junction may be partially obstructing the right
ureter.
Data Reviewed
-
CT Scan: Report Reviewed by me
Lab Data: Labs Reviewed by me
Old Records: Reviewed
Impression/Plan
-
Severe Sepsis secondary to Urinary Tract Infection
-Admit to ICU for possible pressors
-Continue IVFs
-Continue ceftriaxone
-Trend lactic acid level
-Await urine and blood cultures
Acute Kidney Injury
-Continue IVFs
-Recheck labs in AM
Right Ureteral vs Bladder Stones
-Appreciate Urology Consult
-No plans for intervention at present time
Coronary Artery Disease s/p Stent
-Hold aspirin due to hematuria
Essential Hypertension
-Hold blood pressure meds in setting of hypotension
Hyperlipidemia
-Continue atorvastatin
Migraine Headaches
Chronic Pain with Opioid Dependence
-Continue gabapentin
-Continue oxycodone PRN
Anxiety / Depression
-Continue Effexor
Morbid Obesity due to Excess Calories
-Affects all aspects of care
Hx Prostate Cancer s/p Radiation
DVT proph: SCDs
Code Status: Full Code
[2025-04-14] MEDS: ROCEPHIN 2000 MG IV (17:28)
--- NOTE | 2025-04-14 17:36 | CON.MD ---
Consultation - Medical
-
see dictated note
pt followed by dr larry
morbidly obese
dx'd with high grade prostate cancer last year
underwent xrt and continues on lupron
seen in ER on tuesday with urinary discomfort and parital retention- elizalde placed- 350cc residual- not bloody
sent home on antibx- ucx from tuesday negative
returns today with retention/confusion and hypotension
cr up to 3/elevated lactic acid
elizalde placed- 1 liter of pyridium colored urine drained
ct shows mild bilateral hydro and stones in bladder- ? if these are ureteral- but have been present in the bladder on multiple images
plan
sepsis- presumed urinary origin
ARF- suspect due to sepsis and urinary retention
prostate cancer
bladder stones
elizalde in bladder
no need for acute intervention for bladder stones
ICU- fluids/pressors/antibx/cx's
will follow closely
tried to call sister to update
Consultation
-
Date/Time Consultation Requested: 04/14/25 at 5pm
Date/Time Consultation Performed: 04/14/25 at 5:30pm
Requesting Provider: ER
Performing Provider: Dr lópez
Reason for Consultation: retention/renal failure/hx of prostate cancer
[2025-04-14] MEDS: LEVOPHED 250 IV (18:06)
[2025-04-14 19:27] LABS: Glucose - Point of Care 103 mg/dl (70-99)
[2025-04-14] MEDS: FLOMAX 0.4 MG PO (19:58)
[2025-04-14] MEDS: NEURONTIN 300 MG PO (19:58)
[2025-04-14] MEDS: EFFEXOR XR 150 MG PO (19:58)
--- NOTE | 2025-04-14 20:36 | W.PN.SEPSIS ---
Sepsis
Vital Signs
Temp Pulse Resp BP Pulse Ox
99.6 F 65 20 122/80 98
04/14/25 15:22 04/14/25 19:00 04/14/25 19:00 04/14/25 19:00 04/14/25 18:15
Physical Exam
Physical Exam:
A focused exam was performed after fluid resuscitation.
Capillary Refill
Bilateral Upper Extremity:
Luz Maria Time: Less than 3 sec
Bilateral Lower Extremity:
Luz Maria Time: Less than 3 sec
Pulse Evaluation
Bilateral Radial:
Pulse Evaluation: Present
Bilateral Dorsalis Pedis:
Pulse Evaluation: Present
--- NOTE | 2025-04-14 22:53 | PTCARENOTE ---
Rec'd pt from ED with severe sepsis/uti on 2mcg levophed. Pt alert and oriented, conversive and cooperative. Helps turn in bed. No c/o pain. Afebrile, NSR on monitor. 60s-70s. Maintaining levo to goals. PIV X2 flushed and patent. Pulses palpable,
lower extremity edema R>L with rash/scabs noted on right live. WOC consult placed. 2L nasal cannula 95%, no distress. CTA. Low sodium diet, NPO after midnight. Took pills with ease. Last reported BM 04/13, abdomen rounded/soft/obese. Gregory to
gravity draining orange urine. Skin as documented. Desenex to folds. Will monitor.
[2025-04-14] MEDS: LIPITOR 80 MG PO (23:01)
[2025-04-15] VITALS (27 sets, daily range): BP systolic 97–134; BP diastolic 55–86; BMI 48.7
[2025-04-15 03:44] LABS: ALT (SGPT) 71 U/L (0-50); AST (SGOT) 42 U/L (17-59); Albumin 2.8 g/dl (3.5-5.0); Alkaline Phosphatase 82 U/L (38-126); Blood Urea Nitrogen 32 mg/dl (9-20); Calcium 9.2 mg/dl (8.4-10.2); Carbon Dioxide 22 mmol/L (22-30); Chloride 118 mmol/L (98-107); Estimated Creatinine Clearance 64 ml/min; Glucose 95 mg/dl (70-99); Magnesium 2.3 mg/dl (1.6-2.3); Potassium 4.0 mmol/L (3.5-5.1); Sodium 140 mmol/L (135-145); Total Protein 5.2 g/dl (6.3-8.2); eGFR 50.71
--- NOTE | 2025-04-15 05:00 | PTCARENOTE ---
Labs clotted this AM. several nurses tried. VAT at bedside to draw. Pt afebrile, off levophed since 2am. Gregory draining ample amount orange urine. Will monitor.
[2025-04-15] MEDS: NSS 1000 IV (05:17)
[2025-04-15] MEDS: ROXICODONE 10 MG PO ×4 (05:17→23:55)
[2025-04-15 06:11] LABS: Hematocrit 35.6 % (39.0-52.0); Hemoglobin 11.8 g/dL (13.0-18.0); INR 1.20; Mean Corp Hgb Conc. 33.1 g/dL (33.0-37.0); Mean Corpuscular Volume 98.3 fL (80.0-94.0); PT 15.5 Sec (11.4-14.6); Platelet Count 135 10^3/uL (130-400); Red Cell Dist. Width 13.4 % (11.5-14.5)
[2025-04-15 06:12] LABS: APTT 30.8 Sec (23.4-35.0)
--- NOTE | 2025-04-15 06:45 | W.PN.URO.CBU ---
Today's Communication / Plan
-
continue elizalde
Assessment / Plan
-
prostate cancer s/p XRT
bladder stones (no evid of ureteral stones)
urinary retention
MAI- believed secondary to retention
sepsis- suspect UTI
pt much improved this am
urine clear
renal function returning to baseline
no evid of ureteral stones- chronic bladder stones
continue supportive medical care- iv antibx and elizalde
await ucx result
regular diet
Diagnosis
-
Date of Service: April 15, 2025
-
Patient Diagnosis:
prostate cancer s/p XRT
bladder stones
urinary retention
MAI
suspected UTI
Subjective
-
pt looks much better today- more alert and awake
off pressors
urine clear
cr and lactic acid normalizing
cx's pending
Objective
-
Vital Signs
Temp Pulse Resp BP Pulse Ox
98.6 F 70 20 111/60 95
04/15/25 03:20 04/15/25 06:00 04/15/25 06:00 04/15/25 05:00 04/15/25 06:00
Intake and Output
04/13/25 04/14/25 04/15/25
06:59 06:59 06:59
Intake Total 1145.0 / 1145.0
Output Total 2500 / 2500
Balance -1355.0 / -1355.0
Intake:
IV fluids (Total) 1145.0 / 1145.0
Levophed 45.0 / 45.0
Nss 1,000 ml @ 100 mls/hr IV . 1100 / 1100
Q10H BERTO Rx#:[id number]
Output:
Urine, Elizalde 2500 / 2500
Laboratory Results
04/15/25 05:42
04/15/25 03:11
Review of Systems
-
Constitutional: Fatigue
Respiratory: No Symptoms
Cardiac: No Symptoms
Abdomen/GI: No Symptoms
: Other (tonio andino)
Physical Exam
-
General -no acute distress
Abdomen - obese, non tender
Genitalia - elizalde in place- no erythema or mass
--- NOTE | 2025-04-15 08:22 | CON.INTV ---
Consultation
Consultation Request
Date/Time Consultation Requested: 04/14/2025 - 1956
Date/Time Consultation Performed: 04/15/2025810
Requesting Provider: JATINDER De La Cruz
Performing Provider: Dr. Caldwell
Reason for Consultation: Sepsis
Medical History
-
Chief Complaint: Difficulty urinating + change in mental status
History of Present Illness:
69-year-old male with a past medical history of CAD s/p RCA stent (May 2013), hypertension, hyperlipidemia, depression, prostate cancer s/p XRT now on Lupron shots (last given 02/20/2025), history of renal + bladder calculi, BPH, severe back
pain and anxiety who presents with difficulty urinating and found to be confused/altered as per the sister. Patient was recently diagnosed with acute prostatitis after having severe pain in his penis, sudden urinary incontinence and gross blood
from penis intolerable on 04/12. He went to the ER and found to have bloody urine with +1 episode esterase, and Gregory inserted with clear urine drained with no blood or clots seen. Gregory with CBI was stopped and he was diagnosed with bacterial
prostatitis, sent home with Pyridium and cefdinir for 7 days. Gregory inserted with 1 L of urine that appeared orange likely from the Pyridium was drained. He was afebrile in the ER, pulse rate 70, BP low at 72/42 and he was saturating 87% on room
air which improved to 92% on 2 L/min nasal cannula. Labs showed mild leukocytosis to 11.1, Hb 12.8, creatinine 3.6, BUN 45, calcium 10.4, lactate 3.4, T. bili 1.5, and urinalysis with positive nitrite, +2 leukocyte esterase and >100 urine RBC and
90�[address] abdomen/pelvis from 04/14/2025 showed mild bilateral hydronephrosis (R >L) with 2 calculi in the right lateral urinary bladder lumen near the right UVJ which may be partially obstructing the right ureter. IVF was started and
he was given a total of 5 L NS 0.9%, also given ceftriaxone and ultimately required Levophed given persistent hypotension. Urology consulted and recommended to continue fluids, antibiotics and pressors with no need for acute urological
intervention. Patient was admitted to the ICU for further care and hide [employer] worker services consulted for additional management/recommendations.
When I saw the patient this morning, he was resting in bed, with patient's sister Zara present at bedside. Patient has been weaned off Levophed since 2 AM. Heart rate currently 81 with BP 104/62. He feels much better overall. Per the sister,
he is no longer as confused. Patient currently denies SOB, chest pain, abdominal pain, nausea, fevers or chills
PMHx: CAD s/p coronary stent (RCA � 05/2013), hypertension, hyperlipidemia, depression, history of prostate cancer s/p XRT on q6 month lupron shots (last given 02/20/2025), history of kidney stones, anxiety, history of chickenpox, BPH, bladder
calculi, thoracic DDD and bilateral hip osteoarthritis, history of severe back pain, morbid obesity, history of alcohol use
PSHx: Thrombectomy and stenting of proximal RCA occlusion using overlapping drug-eluting stents (06/14/2013), bilateral knee surgery x 4, anterior fixation right thigh s/p removal, cholecystectomy, tonsillectomy, prostate biopsies (02/2024)
Past Medical History
Past Medical History: Other (Above as per HPI)
Past Surgical History: Other (Above as per HPI)
Social History
Tobacco: Non-smoker
Alcohol: None
Drug: None
Family History
Family History: Cancer (Sister: Breast cancer), Hypertension (Father + mother) and Other (Mother: Dementia and hypercholesterolemia; father: Hypercholesterolemia; brother: RA + Lyme disease)
Allergies / Home Medications
Allergies
Allergy/AdvReac Type Severity Reaction Status Date / Time
No Known Allergies Allergy Verified 04/14/25 15:29
Home Medications
�Medication �Instructions �Recorded �Confirmed �Last Taken �Type
aspirin 81 mg tablet,delayed 81 mg PO DAILY ##30 06/16/13 04/14/2504/14/25 Rx
release
metoprolol tartrate 25 mg tablet 25 mg PO BID ##60 06/16/13 04/14/25 04/14/25 Rx
oxycodone 10 mg tablet 10 mg PO 6XD 01/09/19 04/14/25 04/14/25 History
venlafaxine 150 mg 150 mg PO BID 01/09/19 04/14/25 04/14/25 History
capsule,extended release 24 hr
(Effexor XR)
ubrogepant 100 mg tablet (Ubrelvy) 100 mg PO DAILYPRN PRN migraines 04/28/21 04/14/25 04/12/25 History
atorvastatin 80 mg tablet 80 mg PO HS 03/13/24 04/14/25 04/13/25 History
lisinopril 5 mg tablet 5 mg PO DAILY 03/13/24 04/14/25 04/14/25 History
tamsulosin 0.4 mg capsule 0.4 mg PO BID 03/13/24 04/14/25 04/14/25 History
cefdinir 300 mg capsule 300 mg PO BID #13 caps 04/12/25 04/14/25 04/14/25 Rx
phenazopyridine 100 mg tablet 100 mg PO TID PRN Pain #14 tabs 04/12/25 04/14/25 04/13/25 Rx
(Pyridium)
furosemide 20 mg tablet 20 mg PO DAILY 04/14/25 04/14/25 04/14/25 History
gabapentin 300 mg capsule 300 mg PO BID 04/14/25 04/14/25 04/14/25 History
Review of Systems
-
History Source: Patient
All other systems: Negative unless noted
Vitals / Labs / Diagnostic Testing
Vital Signs
Temp Pulse Resp BP Pulse Ox
98.7 F 76 15 109/63 100
04/15/25 07:28 04/15/25 08:30 04/15/25 08:30 04/15/25 08:30 04/15/25 08:50
Lab Data
04/15/25 05:42
04/15/25 03:11
Laboratory Results
04/15/25 04/15/25
03:11 05:42
PT Cancelled 15.5 H
INR Cancelled 1.20
APTT Cancelled 30.8
Diagnostic Testing:
Physical Exam
-
HEENT: Normocephalic and Anicteric
Cardiovascular: S1/S2 and Peripheral Edema (+1 lower extremity pitting edema bilaterally)
Respiratory: Wheeze (negative), Rales (negative), Rhonchi (negative) and Non-Labored Respirations
GI: Soft, Distended (Abdominal obesity), Tender (Mild periumbilical tenderness to palpation) and Normal Bowel Sounds
Neurology: Awake, No Motor Deficits (negative) and Other (Drowsy)
Skin: Warm, Dry and Other (Mild erythema seen in the distal right lower extremity, likely from chronic venous stasis dermatitis changes)
General: Respiratory Distress (negative), Comfortable, Fever (negative) and Chills (negative)
Assessment
-
Assessment: 69-year-old male with a past medical history of CAD s/p RCA stent (May 2013), hypertension, hyperlipidemia, depression, prostate cancer s/p XRT now on Lupron shots (last given 02/20/2025), history of renal + bladder calculi, BPH,
severe back pain and anxiety who presents with difficulty urinating and found to be confused/altered as per the sister. Patient was recently diagnosed with acute prostatitis after having severe pain in his penis, sudden urinary incontinence and
gross blood from penis intolerable on 04/12. He went to the ER and found to have bloody urine with +1 episode esterase, and Gregory inserted with clear urine drained with no blood or clots seen. Gregory with CBI was stopped and he was diagnosed with
bacterial prostatitis, sent home with Pyridium and cefdinir for 7 days. Gregory inserted with 1 L of urine that appeared orange likely from the Pyridium was drained. He was afebrile in the ER, pulse rate 70, BP low at 72/42 and he was saturating 87%
on room air which improved to 92% on 2 L/min nasal cannula. Labs showed mild leukocytosis to 11.1, Hb 12.8, creatinine 3.6, BUN 45, calcium 10.4, lactate 3.4, T. bili 1.5, and urinalysis with positive nitrite, +2 leukocyte esterase and >100 urine
RBC and 90�[address] abdomen/pelvis from 04/14/2025 showed mild bilateral hydronephrosis (R >L) with 2 calculi in the right lateral urinary bladder lumen near the right UVJ which may be partially obstructing the right ureter. IVF was
started and he was given a total of 5 L NS 0.9%, also given ceftriaxone and ultimately required Levophed given persistent hypotension. Urology consulted and recommended to continue fluids, antibiotics and pressors with no need for acute urological
intervention. Patient was admitted to the ICU for further care and hide [employer] worker services consulted for additional management/recommendations.
Chronic conditions [employer]: CAD s/p coronary stent (RCA � 05/2013), hypertension, hyperlipidemia, depression, history of prostate cancer s/p XRT on q6 month lupron shots (last given 02/20/2025), history of kidney stones, anxiety, history of chickenpox,
BPH, bladder calculi, thoracic DDD and bilateral hip osteoarthritis, history of severe back pain, morbid obesity, history of alcohol use
Impression:
#Septic shock due to stone related to UTI � shock state now resolved
#Acute respiratory failure with hypoxia due to sepsis with acute organ dysfunction
#Complicated UTI
#Bladder calculi adjacent to right UVJ with suspected obstruction of the right ureter
#Postrenal azotemia with severe DANIA due to above
#Acute anemia (mild)
#Lactic acidosis � now resolved
#Transaminitis with hyperbilirubinemia � improved
Plan:
- Patient initially required vasopressors with levo, but that is now been weaned off and he remains hemodynamically stable
- Maintain MAP >65
- Continue with broad-spectrum antibiotics - currently on rocephin
- Follow-up blood and urine cultures
- Urology on board - no acute urological intervention needed
- Continue with IVF until tomorrow morning given how significant his DANIA was. Creatinine improving; continue to trend sCr and avoid nephrotoxic agents; monitor I/O
- Trend LFTs
- Maintain SpO2 >90-94%, weaning down supplemental oxygen as tolerated
- Replete electrolytes with K>4, Mg>2
- Maintain euglycemia with goal BG 140-180
- Trend H/H and transfuse if needed to keep Hb>7-8g/dL; keep plt>50k
- prn nebulized bronchodilators - not currently bronchospastic
- Incentive spirometer encouraged 10x per hour for at least 4 hrs a day
- DVT ppx - given his hematuria on admission, hold off on resuming chemical DVT ppx until tomorrow assuming Hb remains stable; ok to resume ASA now tho given his Hx of RCA BETHEL
- Currently no signs of bleeding
Patient is stable for downgrade out of ICU to telemetry. No additional recommendations at this time. Engineering Consultant/Pulmonary service will now sign off. Thank you for allowing us to be involved in the care of this patient. Please reconsult if there
are any additional questions/concerns, or if patient's respiratory status deteriorates.
Data:
CT abdomen/pelvis without contrast 04/14/2025:
Mild bilateral hydronephrosis, right greater than left. Collapsed urinary bladder with a Gregory catheter in place. Two calculi in the right lateral urinary bladder lumen near the right ureterovesicular junction may be partially obstructing the right
ureter.
CXR 04/14/2025: No acute cardiopulmonary process.
Total time spent today was 59 minutes for this encounter. Time includes reviewing laboratory test/imaging results, reviewing pertinent medical records, obtaining and reviewing medical history, performing an appropriate exam, ordering medications,
tests and procedures. Time also includes documentation of this encounter, coordinating patient care and communicating with other healthcare professionals. Total time does not include separately billed tests performed on this date of service.
--- NOTE | 2025-04-15 08:53 | PTCARENOTE ---
Assumed care of pt. approx 0700.
Uro rounded --> no interventions further see provider report.
Started on regular diet per uro.
Pt. reported bag missing, er contacted, point of contact notified 'Zara' reports that bag is at home and she will bring in bag and migraine medicine that is not on formulary here.
Pharmacy notified of NF medication for migraines, ICU team contacted for adjunct therapy until medication arrives.
[2025-04-15] MEDS: FLOMAX 0.4 MG PO ×2 (09:00→21:46)
[2025-04-15] MEDS: EFFEXOR XR 150 MG PO ×2 (09:00→21:46)
[2025-04-15] MEDS: NEURONTIN 300 MG PO ×2 (09:00→21:46)
[2025-04-15] MEDS: TYLENOL 650 MG PO (09:00)
--- NOTE | 2025-04-15 09:25 | WOUNDNOTE ---
SACRAL/COCCYX CREASE
--- NOTE | 2025-04-15 09:26 | WOUNDNOTE ---
R ABDOMINAL FOLD (LATERAL)
--- NOTE | 2025-04-15 09:27 | WOUNDNOTE ---
[facility] RN note: Patient admitted with severe sepsis, obstructing stone. Patient lives with his sister.
See H&P for complete history.
PMH: prostate ca, s/p radiation in September, nephrolithiasis, BPH, CAD with stents, HTN, anxiety, chronic pain, opioid dependency, obesity, R femur fracture repair, Gregory.
Wound Location and type/assessment: Patient admitted with: R live dry superficial scab with hemosiderosis d/t venous edema. +1 LE edema. +Pedal pulses palpated. Sacral/coccyx crease MASD with yeasty red appearing skin, yeasty red skin R lateral
abdominal folds, R anterior chest fold.
Appetite: good.
Pressure redistribution devices in place: Centrella Max air. Patient can turn self in bed.
Plan: Miconazole powder applied to sacral/coccyx/winifred skin, R lateral abdominal folds yeasty rash. Heel elevation maintained. Patient turned to L semi side lying position. Instructed patient pressure injury prevention measures.
Will confirm orders with Dr. Thapa or resident Bridget Aparicio and discussed with HARJIT Marshall.
Care plan to be updated, will sign off. Call with questions/concerns.
--- NOTE | 2025-04-15 09:57 | PTCARENOTE ---
ROUND NOTES
Downgrade out of CC.
Crystalloid changed to LR due to hyperchloremia.
Aspirin added for previous RCA stent due to resolution of hematuria.
IV ABX increased dose due to BMI.
[2025-04-15] MEDS: NON-FORMULARY ITEM 100 MG PO (10:45)
[2025-04-15] MEDS: ASPIR LOW (ENTERIC COATED) 81 MG PO (11:37)
[2025-04-15] MEDS: LR 1000 IV (11:37)
--- NOTE | 2025-04-15 14:40 | WOUNDNOTE ---
WOC RN note: Confirmed skin care and knee high Tubigrip orders from Dr. Luis Antonio Ramsey.
[2025-04-15] MEDS: STERILE WATER FOR INJECTION 20 ML IV (16:07)
[2025-04-15] MEDS: ROCEPHIN 2000 MG IV (16:07)
[2025-04-15] MEDS: FLUSH (NSS) 1 FLUSH IV ×2 (16:15)
--- NOTE | 2025-04-15 17:01 | CM ---
Patient seen at bedside with physicians. Patient lives with sister. Patient stated that he lives in a w story home with a walker, wheelchair and a cane. Patient PCP is Dr. Drummond and they use the [facility] on [facility] [facility] [address] [facility]. Patient stated that
he was driving prior to discharge and had no home O2. CM will continue to follow for discharge planning needs.
Plan; home with VN vs SNF pending therapy recommendations/ medical treatment plan
--- NOTE | 2025-04-15 17:17 | W.PN.HOSP.TC ---
Addendum entered and electronically signed by Yanet Thapa MD 04/15/25 18:04:
I saw and evaluated the patient independently. I reviewed the resident�s note and agree with findings and plan as documented by Dr. Ramsey.
GENERAL: well developed, well nourished, obese male in no apparent distress
HEENT: NC/AT
HEART: regular rate and rhythm, +S1, +S2
LUNGS : clear to auscultation bilaterally
ABDOM: soft, nontender, nondistended, + bowel sounds
EXT: no cyanosis, clubbing, or edema
NEUROLOGIC: grossly intact
: elizalde with orange urine
Resolved septic shock due to presumed urinary origin infection--suspect prostatitis with neg urine culture but positive UA--off pressors--IVF--cont IV rocephin--follow blood and urine cultures--apprec urology
Mixed prerenal and postrenal acute kidney injury--due to septic shock and post renal retention/hydro--cont elizalde and IVF--creat improved (3.6 to 1.5) not yet at baseline--CT scan of abdomen showed 2 calculi in the right lateral urinary bladder lumen
which could also indicate an obstructive cause or postrenal cause of DANIA.
Essential hypertension- Patient's lisinopril 5 mg Home dose is held due to hypotension and acute kidney injury. Will restart antihypertensive medication once DANIA resolves.
Hyperlipidemia- Continue atorvastatin
Migraine headaches- Continue gabapentin and oxycodone as needed
Anxiety and depression- Continue Effexor
BPH-- Continue tamsulosin
DVT proph-- SCDs
Full code
Original Note:
Today's Communication/Plan
-
Awaiting urine and blood culture results, trend lactate, trend CBC, trend CMP especially the creatinine level, follow-up with urology
Assessment / Plan
Assessment / Plan
Resolved septic shock due to presumed urinary origin infection
Mixed prerenal and postrenal acute kidney injury:
- Patient met SIRS criteria with elevated WBC, hypotension. Sepsis bundle was administered. Also met septic shock criteria as patient's hypotension was not initially well-controlled on IV fluids so we needed to use a pressor to maintain a MAP over
65.
-Today's vitals are stable and patient is afebrile, labs show WBC count of 6.2, hemoglobin of 11.8, lactate of 0.9, creatinine level of 1.5 which is decreased from 3.5 yesterday all pointing to resolving septic shock.
-Patient's Elizalde today is draining urine at a rate more than 0.5 mL/kg/h.
- Continue lactated Ringer's fluids as patient's creatinine is 1.5. Prerenal as creatinine was normal before at a baseline of 0.8-1 and then after bout of sepsis increased more than 30% indicating a potential prerenal DANIA. CT scan of abdomen showed
2 calculi in the right lateral urinary bladder lumen which could also indicate an obstructive cause or postrenal cause of DANIA.
- Continue IV ceftriaxone to treat presumed urinary tract infection origin until cultures result and then we can taper to specific organism and
- Await urine and blood cultures
- Dr. Lennon urologist saw patient today and wants to keep Elizalde catheter in place along with continuing IV antibiotic. Agree with this plan. No surgical interventions planned for today.
- As needed acetaminophen for mild abdominal pain and Zofran for nausea and vomiting.
Essential hypertension:
- Today blood pressure is at 120/68 and well-controlled
- Patient's lisinopril 5 mg Home dose is held due to hypotension and acute kidney injury. Will restart antihypertensive medication once DANIA resolves.
Hyperlipidemia:
- Continue atorvastatin
Migraine headaches:
- Continue gabapentin and oxycodone as needed
Anxiety and depression:
- Continue Effexor
BPH:
- Continue tamsulosin
DVT prophylaxis SCDs
Full code
Anticipated Discharge: 24 - 48 hours
Subjective/Interval History
-
Date of Service: April 15, 2025
69-year-old male full code with a previous medical history of prostate cancer status post radiation in [place], nephrolithiasis, BPH, coronary artery disease, hypertension, hypercholesterolemia, anxiety, chronic pain. Initially presented to the
emergency department on 04/12/2025 with hematuria and retention and was diagnosed with acute prostatitis, Elizalde catheter was placed, bladder was irrigated, and he was discharged without the Elizalde and a course of cefdinir. His urine culture then was
negative. Then on 04/14/2025, with similar symptoms with more severe presentation, labs showed leukocytosis, lactic acid was 3.4, urinalysis consistent with UTI, CT of the abdomen showed mild bilateral hydronephrosis greater on the right than the
left, Collapsed urinary bladder with a Elizalde catheter in place. Two calculi in the right lateral urinary bladder lumen near the right ureterovesical junction may be partially obstructing the right ureter. Patient's vitals are also unstable as he
was hypotensive. Patient was diagnosed with sepsis secondary to obstructive nephrolithiasis. Elizalde catheter was placed, IV fluids were given, urine culture was sent, blood cultures were sent, ceftriaxone was administered and Levophed as necessary.
Urology was consulted, Dr. Musa saw him, agreed with diagnosis of sepsis and basically said that continue IV antibiotics and Elizalde while waiting the urine culture result and start patient on regular diet.
Today the patient's only medical complaint is pain in the periumbilical region and sometimes bilaterally where his kidneys are.
Objective Data
-
Labs:
Laboratory Results
04/15/25
05:42
WBC 6.2
Hgb 11.8 L
Hct 35.6 L
Plt Count 135 D
PT 15.5 H
INR 1.20
APTT 30.8
Vital Signs:
Vital Signs
Temp Pulse Resp BP Pulse Ox
97.8 F 65 19 115/71 100
04/15/25 11:04 04/15/25 15:15 04/15/25 11:35 04/15/25 12:00 04/15/25 08:50
I&O
04/14/25 04/15/25 04/16/25
06:59 06:59 06:59
Intake Total 1145.0 / 1245.0 920 / 920
Output Total 2500 / 3000 1080 / 1080
Balance -1355.0 / -1755.0 -160 / -160
Review of Systems
-
History Source: Patient
All other systems: Reviewed and negative
Abdomen/GI: Reports Abdominal Pain
Physical Exam
-
General: Well Developed
Respiratory: Clear to Auscultation
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
GI: Soft, Nondistended, Normal Bowel Sounds and Tender (Mild periumbilical tenderness to palpation)
Genito-urinary: No Costovertebral Tender
Musculoskeletal: Other (Bilateral pitting edema of both lower extremities)
Skin: Warm, Dry and Other (Right live dry superficial scab with hemosiderosis due to venous edema)
Neuro: Awake, Alert, Oriented and AO x 3
Data Reviewed
-
Diagnostic Radiology: Report Reviewed by me and Discussed with Physician
CT Scan: Report Reviewed by me and Discussed with Physician
Labs: Labs Reviewed by me and Discussed with Physician
[2025-04-15 20:55] LABS: Magnesium 2.0 mg/dl (1.6-2.3)
[2025-04-15] MEDS: LIPITOR 80 MG PO (21:46)
[2025-04-16 03:52] VITALS: BP 137/80
[2025-04-16] MEDS: ROXICODONE 10 MG PO ×2 (04:57→09:12)
--- NOTE | 2025-04-16 07:36 | W.PN.URO.CBU ---
Today's Communication / Plan
-
continue elizalde
check ucx
dispo planning
Assessment / Plan
-
prostate cancer s/p XRT
bladder stones (no evid of ureteral stones)
urinary retention
MAI- believed secondary to retention
sepsis- suspect UTI
pt continues to improved
check am labs
await ucx- suspect UTI- cx may be negative given antibx taken at home
continue elizalde
if remains in hospital overnight check psa tomorrow
stable for discharge urologically with elizalde- leg bag teaching and VN consult today
should call to schedule outpt f/u with dr larry
Diagnosis
-
Date of Service: April 16, 2025
-
Patient Diagnosis:
prostate cancer s/p XRT
bladder stones
urinary retention
MAI
suspected UTI
Subjective
-
pt out of ICU
looks much better
no fevers/ BP normalized
urine clear via elizalde
blood cx's negative/ ucx pending
Objective
-
Vital Signs
Temp Pulse Resp BP Pulse Ox
98.5 F 71 19 137/80 94
04/16/25 03:52 04/16/25 03:52 04/16/25 03:52 04/16/25 03:52 04/16/25 03:52
Intake and Output
04/15/25 04/16/25 04/17/25
06:59 06:59 06:59
Intake Total 1145.0 / 1245.0 920 / 920
Output Total 2500 / 3000 2180 / 2180
Balance -1355.0 / -1755.0 -1260 / -1260
Intake:
Oral fluids 420 / 420
IV fluids (Total) 1145.0 / 1245.0 500 / 500
Levophed 45.0 / 45.0
Lr 1,000 ml @ 75 mls/hr IV . 300 / 300
[id number] BERTO Rx#:[id number]
Nss 1,000 ml @ 100 mls/hr IV . 1100 / 1200 200 / 200
Q10H BERTO Rx#:[id number]
Output:
Urine, Elizalde 2500 / 3000 2180 / 2180
Review of Systems
-
Constitutional: Fatigue
Respiratory: No Symptoms
Cardiac: No Symptoms
Abdomen/GI: No Symptoms
Physical Exam
-
General - no acute distress
Abdomen - soft, non-tender
Genitalia - elizalde in place
[2025-04-16 07:45] VITALS: BP 134/83
[2025-04-16 07:55] LABS: Hematocrit 32.9 % (39.0-52.0); Hemoglobin 10.7 g/dL (13.0-18.0); Mean Corp Hgb Conc. 32.5 g/dL (33.0-37.0); Mean Corpuscular Volume 97.9 fL (80.0-94.0); Nucleated Red Blood Cells % 0 % (-); Platelet Count 133 10^3/uL (130-400); Red Cell Dist. Width 13.2 % (11.5-14.5)
[2025-04-16 08:22] LABS: ALT (SGPT) 58 U/L (0-50); AST (SGOT) 31 U/L (17-59); Albumin 3.0 g/dl (3.5-5.0); Alkaline Phosphatase 95 U/L (38-126); Blood Urea Nitrogen 14 mg/dl (9-20); Calcium 9.6 mg/dl (8.4-10.2); Carbon Dioxide 26 mmol/L (22-30); Chloride 112 mmol/L (98-107); Estimated Creatinine Clearance 118 ml/min; Glucose 96 mg/dl (70-99); Potassium 3.9 mmol/L (3.5-5.1); Sodium 137 mmol/L (135-145); Total Protein 5.4 g/dl (6.3-8.2); eGFR > 60.00
[2025-04-16 09:04] VITALS: BP 143/81; PULSE 69; O2SAT 95
[2025-04-16] MEDS: HEPARIN 5000 UNITS SC (09:11)
[2025-04-16] MEDS: NEURONTIN 300 MG PO (09:12)
[2025-04-16] MEDS: ASPIR LOW (ENTERIC COATED) 81 MG PO (09:12)
[2025-04-16] MEDS: EFFEXOR XR 150 MG PO (09:12)
[2025-04-16] MEDS: FLOMAX 0.4 MG PO (09:12)
[2025-04-16] MEDS: HYDROPHOR 1 APPLIC TOPICAL (09:13)
[2025-04-16 11:50] VITALS: BP 139/86
[2025-04-16 12:17] VITALS: BP 143/81; PULSE 69; O2SAT 95
--- NOTE | 2025-04-16 13:40 | CM ---
Patient seen at bedside with physician. Patient for discharge home with [facility] to follow for elizalde care, pt and ot. Patient completed IMM and signed form placed on chart. CM will continue to follow for discharge planning needs.
Plan home with [facility].
[2025-04-16 13:41] LABS: Hemoglobin 10.7 g/dL (13.0-18.0)
--- NOTE | 2025-04-16 13:47 | VNURNOTE ---
Home Health Liaison met with patient at bedside to discuss [facility] nurse/therapy, visits, schedule and homebound status. Patient is agreeable and understands that visits at home will be 2-3 x per week to assess and teach medical management.
Patient is aware that [facility] will contact them for start of care in 1-2 days after discharge from . Provided contact number for [facility].
[facility] referral completed in [facility].
--- NOTE | 2025-04-16 15:18 | W.PN.HOSP.TC ---
Addendum entered and electronically signed by Yanet Thapa MD 04/16/25 18:02:
I saw and evaluated the patient independently. I reviewed and discussed the resident�s note and agree with findings and plan as documented by Dr. Ramsey.
GENERAL: well developed, well nourished, obese male in no apparent distress
HEENT: NC/AT
HEART: regular rate and rhythm, +S1, +S2
LUNGS : clear to auscultation bilaterally
ABDOM: soft, nontender, nondistended, + bowel sounds
EXT: no cyanosis, clubbing, or edema
NEUROLOGIC: grossly intact
: elizalde with clear urine
Resolved septic shock due to presumed urinary origin infection--suspect prostatitis with neg urine culture but positive UA--off pressors--stop IVF--cont IV rocephin--blood and urine cultures negative--apprec urology--d/c with elizalde and 10 days of
cipro
Mixed prerenal and postrenal acute kidney injury--due to septic shock and post renal retention/hydro--cont elizalde --creat improved (3.6 to 1.5 to 0.8)--CT scan of abdomen showed 2 calculi in the right lateral urinary bladder lumen which could also
indicate an obstructive cause or postrenal cause of DANIA.
Essential hypertension- Patient's lisinopril 5 mg Home dose is held due to hypotension and acute kidney injury. Will restart antihypertensive medication once DANIA resolves.
Hyperlipidemia- Continue atorvastatin
Migraine headaches- Continue gabapentin and oxycodone as needed
Anxiety and depression- Continue Effexor
BPH-- Continue tamsulosin
DVT proph-- SCDs
Full code
OK for d/c
Original Note:
Today's Communication/Plan
-
- Discharging patient today.
Assessment / Plan
Assessment / Plan
Resolved septic shock due to presumed urinary origin infection
Mixed prerenal and postrenal acute kidney injury:
- Patient met SIRS criteria with elevated WBC, hypotension. Sepsis bundle was administered. Also met septic shock criteria as patient's hypotension was not initially well-controlled on IV fluids so we needed to use a pressor to maintain a MAP over
65.
-Today's vitals are stable and patient is afebrile, labs show WBC count of 5.4, hemoglobin of 10.7, creatinine level of 0.8 which is decreased from 3.5 on admission all pointing to resolved septic shock.
- Patient's Elizalde today is draining urine at a rate more than 0.5 mL/kg/h.
- DC'd lactated Ringer's fluids as patient's creatinine is normalized. CT scan of abdomen showed 2 calculi in the right lateral urinary bladder lumen which could also indicate an obstructive cause or postrenal cause of DANIA.
- Blood and urine culture negative. Dc'd antibiotics.
- Dr. Lennon urologist saw patient today and wants to keep Elizalde catheter in place and have patient follow up outpatient. Instructions given on leg bag.
- Ciprofloxacin 500 mg BID for 10 days to treat possible prostatitis. UA positive for WBC's and negative on cultures which points to prostatitis.
- visiting nurse order placed
- Physical therapy recommends home therapy.
Anemia due to unknown cause:
- Hgb today is 10.7 from 12.8 on admission
- differential diagnosis is hemodilution vs recent inflammatory response from septic shock. Sepsis induces a systemic inflammatory response and hemolysis can affect red blood cell sounds. Also for septic shock, there are a large amount of iv fluids
administered which might also cause hemodilution.
- Follow up CBC in 1 week with PCP
Right live dry superficial scab with hemosiderosis d/t venous edema:
- wound care placed orders for knee high Tubigrip and Aquaphor.
Essential hypertension:
- Today blood pressure is at 139/86 and well-controlled
- continue lisinopril 5 mg home dose.
Hyperlipidemia:
- Continue atorvastatin
Migraine headaches:
- Continue gabapentin and oxycodone as needed
Anxiety and depression:
- Continue Effexor
BPH:
- Continue tamsulosin
DVT prophylaxis SCDs
Full code
Anticipated Discharge: Today
Subjective/Interval History
-
Date of Service: April 16, 2025
No overnight events.
No acute medical complaints.
Objective Data
-
Labs:
Laboratory Results
04/16/25 04/16/25
07:25 13:22
WBC 5.4
Hgb 10.7 L 10.7 L
Hct 32.9 L
Plt Count 133
Sodium 137
Potassium 3.9
Chloride 112 H
Carbon Dioxide 26
BUN 14
Creatinine 0.8
Glucose 96
Calcium 9.6
Total Bilirubin 0.6
AST 31
ALT 58 H
Alkaline Phosphatase 95
Vital Signs:
Vital Signs
Temp Pulse Resp BP Pulse Ox
98.5 F 77 18 139/86 94
04/16/25 11:50 04/16/25 11:50 04/16/25 11:50 04/16/25 11:50 04/16/25 11:50
I&O
04/15/25 04/16/25 04/17/25
06:59 06:59 06:59
Intake Total 1145.0 / 1245.0 920 / 920
Output Total 2500 / 3000 2180 / 2180
Balance -1355.0 / -1755.0 -1260 / -1260
Review of Systems
-
History Source: Patient
All other systems: Reviewed and negative
Physical Exam
-
General: Well Developed
Respiratory: Clear to Auscultation
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
GI: Soft, Nontender, Nondistended and Normal Bowel Sounds
Genito-urinary: No Costovertebral Tender
Musculoskeletal: Other (Bilateral pitting edema of both lower extremities)
Skin: Warm, Dry and Other (Right live dry superficial scab with hemosiderosis due to venous edema)
Neuro: Awake, Alert, Oriented and AO x 3
Data Reviewed
-
Labs: Labs Reviewed by me and Discussed with Physician
--- NOTE | 2025-04-16 18:11 | W.DCSUMMARY ---
Addendum entered and electronically signed by Yanet Thapa MD 04/16/25 19:22:
Read, reviewed, and agree. See same day progress note for additional details. Time spent coordinating care, DC planning, review of DC plan of care with resident, transition of care, review of records in EMR, med rec, consults, notes, d/w
consultants, nursing, family, and CM = 33 minutes
Original Note:
Discharge Summary
Discharge Data
Date of Admission: 04/14/25
Date of Discharge: 04/16/25
-
Pending Results: No
Hospital Course
Discharging Physician : Dr. Yanet Thapa and Dr.Jitesh Ramsey
Disposition : Home
Primary care physician : Dr. Rob Drummond
Principal Discharge diagnosis : Resolved septic shock due to presumed urinary origin infection, suspected prostatitis, mixed prerenal and postrenal acute kidney injury
Chronic Discharge diagnosis : essential hypertension, hyperlipidemia, depression/anxiety, migraines, benign prostatic hyperplasia
Hospital Course : 69-year-old male with prostate cancer status post radiation in September, nephrolithiasis, BPH, coronary artery disease, hypertension, hypercholesterolemia, anxiety, chronic pain. who presented to the hospital for septic shock due to
presumed urinary origin infection.
Problem #1: Resolved septic shock due to presumed urinary origin infection
- Initially presented to the emergency department on 04/12/2025 with hematuria and retention and was diagnosed with acute prostatitis, Gregory catheter was placed, bladder was irrigated, and he was discharged without the Gregory and a course of
cefdinir. His urine culture then was negative. Then on 04/14/2025, with similar symptoms with more severe presentation, labs showed leukocytosis, lactic acid was 3.4, creatinine of 3.6. Vitals showed hypotension. He met 2 out of 4 SIRS criteria.
Patient was diagnosed with sepsis secondary to obstructive nephrolithiasis. Gregory catheter was placed, IV fluids were given, urine culture was sent, blood cultures were sent, IV ceftriaxone started and Levophed as necessary due to persistently low
blood pressure despite fluid use. Chest x-ray negative, CT abdomen pelvis showed Mild bilateral hydronephrosis, right greater than left. Collapsed urinary bladder with a Gregory catheter in place. Two calculi in the right lateral urinary bladder
lumen near the right ureterovesicular junction may be partially obstructing the right ureter. Patient was in admitted to the ICU. Urology was consulted, Dr. Lennon saw him, agreed with diagnosis of sepsis and suggested to continue IV antibiotics
and Gregory. During the next few days of his hospital stay, vitals were stable and afebrile, WBC count/creatinine/lactic acid all were within normal levels, urine output was more than 0.5 mL/kg/hr and normal. Blood and urine cultures came back
negative. Patient then discharged on ciprofloxacin 500 mg twice daily X 10 days for suspected prostatitis. He is to be discharged with Gregory catheter in place and leg bag instructions, outpatient urology follow-up with Dr. Schroeder. Visiting
nurse order and home PT order placed. Follow-up with PCP within 5 days to get CBC and CMP.
Problem #2: Suspected prostatitis
-Initially suspected on 04/12/2025 when he presented to the emergency department. Prostatitis will not appear on urine culture but his U Alysis was negative for an infection. Suspect he still might have prostatitis and have discharged him on
ciprofloxacin 500 mg twice daily X 10 days.
Problem #3: Mixed renal and postrenal acute kidney
-Prerenal cause because of sepsis and postrenal cause because of renal calculi found on CT imaging. IV fluids were administered and his creatinine came down from 3.5 to 0.8 on discharge.
Problem #4: Essential hypertension
-His home dose of 5 mg lisinopril was held due to hypotension and acute kidney injury however patient will continue home dose now that vitals are normalized and creatinine is normalized.
Problem #5: Hyperlipidemia
-Continue atorvastatin 80 mg on discharge
Problem #6 depression/anxiety:
-Continue Effexor on discharge
Problem #7 migraines:
- Continue gabapentin, Ubrelvy, oxycodone on discharge
Problem #8 benign prostatic hyperplasia:
- Continue tamsulosin on discharge
Important imaging findings :
Abdominal pelvis CT on 04/14/2025:
FINDINGS:
CHEST: Mild bibasilar atelectasis. Coronary artery calcifications. Small hiatal hernia.
ABDOMEN:
Surgically absent gallbladder. The unenhanced liver, bile ducts, spleen, and bilateral adrenal glands are unremarkable. The pancreas is atrophic. Mild bilateral hydronephrosis, right greater than left. Punctate right lower pole renal calculus.
The abdominal aorta is normal in caliber. Mild calcified atherosclerosis.
No bowel wall thickening, obstruction, or inflammation. No extraluminal free air, fluid collection, or ascites.
PELVIS: Collapsed urinary bladder with a Gregory catheter in place. Two calculi in the right lateral aspect of the urinary bladder lumen measuring 8 mm and 7 mm. The patient's known prostate cancer is not well evaluated by CT.
SKELETON: Chronic degenerative changes of the spine, bilateral sacroiliac joints, hips, and symphysis pubis.
IMPRESSION:
Mild bilateral hydronephrosis, right greater than left. Collapsed urinary bladder with a Gregory catheter in place. Two calculi in the right lateral urinary bladder lumen near the right ureterovesicular junction may be partially obstructing the right
ureter.
Chest x-ray on 04/14/2025
FINDINGS:
Mild atelectasis in the bilateral lung bases. No focal consolidation, pleural effusion, or pneumothorax. The cardiomediastinal silhouette is normal. Chronic degenerative changes of the spine.
IMPRESSION:
No acute cardiopulmonary process.
Procedure findings :
Discharge Plan
-
Patient Disposition: Home (Routine Discharge)
Discharge Diagnosis/Procedures: Resolved septic shock due to unknown origin, Mixed prerenal and postrenal acute kidney injury, essential hypertension, hyperlipidemia, migraine headaches, anxiety and depression, BPH,
Condition: Fair
Diet: Low Cholesterol
Activity: As tolerated
Driving Restrictions: As prior to admission
Bathing Restrictions: None
Blood Work: CBC and CMP in 1 week with PCP
Other Services: VN, PT and OT
Activity Restrictions/Additional Instructions:
Aquaphor ointment to le's daily.
R live scab-can cover with silicone border foam as needed for protection after cleansing with saline, change foam q 3 days and prn loosened dressing.
Miconazole powder to abdominal/groin, breast folds, sacral/coccyx crease, scrotal skin bid.
Bilateral knee high Tubigrip as tolerated; remove at bedtime, reapply every morning.
Pressure redistributing chair cushion (i.e Air, gel).
Elevate heels off bed with pillow/s.
Instructions: How to Care for Your Gregory Catheter, Male
Referrals:
Kavon Schroeder MD [Active, Urology] - in less than 1 week
Rob Drummond DO [Family Provider, [facility]] - in less than 1 week
Additional Discharge Medication Instructions: keep Gregory's catheter in until Urology appointment with Dr. Schroeder
Prescriptions:
New
Aquaphor Healing 41 % Ointment
1 applic topical DAILY Qty: 20 0RF
ciprofloxacin HCl 500 mg tablet
500 mg PO BID 10 Days Qty: 20 0RF
Continued
aspirin 81 MG tablet,delayed release (DR/EC)
81 mg PO DAILY Qty: 30 11RF
metoprolol tartrate 25 MG tablet
25 mg PO BID Qty: 60 11RF
venlafaxine [Effexor XR] 150 MG capsule,extended release 24hr
150 mg PO BID
oxycodone 10 MG tablet
10 mg PO 6XD
Patient Comments:
last fill 03/30/25 #180
Ubrelvy 100 MG tablet
100 mg PO DAILYPRN PRN (Reason: migraines)
atorvastatin 80 mg Tablet
80 mg PO HS
lisinopril 5 mg Tablet
5 mg PO DAILY
tamsulosin 0.4 MG capsule
0.4 mg PO BID
phenazopyridine [Pyridium] 100 mg tablet
100 mg PO TID PRN (Reason: Pain) Qty: 14 0RF
gabapentin 300 mg capsule
300 mg PO BID
furosemide 20 mg tablet
20 mg PO DAILY
Discontinued
cefdinir 300 mg capsule
300 mg PO BID Qty: 13 0RF
Rx Instructions:
started 04/13/25 for 7 days
Discharge Orders:
Discharge Patient (As Directed); Ordered 04/16/25
Ordered By: Luis Antonio Ramsey
Discharge Date and Time
Discharge Date/Time: 04/16/25 16:16
Print Language: BURKINAN
== END 2025-04-16 16:16 | disposition home health service (06) | DRG 871 ==
LOC: 4 EAST ACU 18:24
PROVIDERS: Nurse Practitioner Family; Physician Assistant Medical; ADMITTING PHYSICIAN Hospitalist; ATTENDING PHYSICIAN Internal Medicine; CONSULT PHYSICIAN Specialist; EMERGENCY PHYSICIAN Emergency Medicine; FAMILY PHYSICIAN Family Medicine; OTHER PHYSICIAN Internal Medicine Critical Care Medicine
DX: A41.9 Sepsis, unspecified organism (principal); R65.21 Severe sepsis with septic shock; N17.9 Acute kidney failure, unspecified; N13.6 Pyonephrosis; F11.20 Opioid dependence, uncomplicated; F03.94 Unspecified dementia, unspecified severity, with anxiety; F03.93 Unspecified dementia, unspecified severity, with mood disturbance; Z68.42 Body mass index [BMI] 45.0-49.9, adult; C61 Malignant neoplasm of prostate; N21.0 Calculus in bladder; I25.10 Atherosclerotic heart disease of native coronary artery without angina pectoris; Z95.5 Presence of coronary angioplasty implant and graft; I10 Essential (primary) hypertension; G43.909 Migraine, unspecified, not intractable, without status migrainosus; G89.4 Chronic pain syndrome; F32.A Depression, unspecified; E66.01 Morbid (severe) obesity due to excess calories; N40.0 Benign prostatic hyperplasia without lower urinary tract symptoms; Z79.82 Long term (current) use of aspirin; Z79.899 Other long term (current) drug therapy
CPT/HCPCS: 71045; 74176; 80053; 81003; 81015; 82962; 83605; 83735; 84100; 85018; 85025; 85027; 85610; 85730; 87040; 87086; 93005; 96361; 96374; 97116; 97162; 97166; 97535; 99285

== ENCOUNTER → 2025-05-06 11:58 | Outpatient (REF) | payer MEDICARE, OTHER, SELFPAY | LOC: CLAB 11:58 | PROVIDERS: ATTENDING PHYSICIAN Specialist | DX: N21.0 Calculus in bladder (principal) | CPT/HCPCS: 82365 ==

== ENCOUNTER 2025-05-14 06:28 | Day surgery (SDC) | payer MEDICARE, OTHER, SELFPAY ==
[2025-05-14 11:10] VITALS: BP 110/64; BMI 46.2
[2025-05-14 11:40] VITALS: BMI 46.2
[2025-05-14 11:43] LABS: Urine Character Cloudy (Clear)
[2025-05-14 11:59] LABS: Urine Squamous Cell 0-2 /LPF (Few)
[2025-05-14 12:00] LABS: Urine Red Blood Cell 26-30 /HPF (0-2); Urine White Cell 50-60 /HPF (0-5)
[2025-05-14] MEDS: NORMOSOL-R/PLASMALYTE-A 1000 IV (12:15)
[2025-05-14 14:00] VITALS: BP 110/64; BP 133/78
--- NOTE | 2025-05-14 14:23 | W.PN.URO.CBU ---
Today's Communication / Plan
-
stable remove elizalde 0700 e=wd for voiding trial
Assessment / Plan
-
iv abs today voiding trial am observe for sepsis etc in post op period
Diagnosis
-
Date of Service: May 14, 2025
-
Patient Diagnosis:pos top check s/p comoplex laser cystolithalopaxy foe lg bladder stones
Post Op Day:
Subjective
-
no pain comfortable
Objective
-
Vital Signs
Temp Pulse Resp BP Pulse Ox
97 F 74 10 133/78 96
05/14/25 14:00 05/14/25 14:00 05/14/25 14:00 05/14/25 14:00 05/14/25 14:15
Intake and Output
05/13/25 05/14/25 05/15/25
06:59 06:59 06:59
Output Total 200 / 200
Balance -200 / -200
Output:
Urine, Elizalde 200 / 200
Review of Systems
-
: Difficulty Voiding
Physical Exam
-
General - well developed, well nourished, no acute distress
Chest - clear bilaterally
Abdomen - soft, non-tender, positive bowel sounds, no CVAT, no incisional pain or distention
Genitalia - normal
Rectal - normal
Skin - warm & dry with no rash
Neuro - AOx3, no motor deficits
Extremities - no clubbing, no cyanosis, no edema
Incision - clean, dry
Dressing - clean, dry, intact
Counseling
-
observe for sepsis pos top complcatios if stable elizalde out 0700
Care Review
Data Reviewed
Discussed with: Nursing and Family
[2025-05-14 15:36] VITALS: BP 132/82
[2025-05-14] MEDS: NSS 1000 IV (15:56)
[2025-05-14] MEDS: ROXICODONE 10 MG PO ×2 (17:01→22:52)
[2025-05-14 19:32] VITALS: BP 132/83
[2025-05-14] MEDS: LOPRESSOR 25 MG PO (21:06)
[2025-05-14] MEDS: EFFEXOR XR 150 MG PO (21:07)
[2025-05-14] MEDS: FLOMAX 0.4 MG PO (21:10)
[2025-05-14] MEDS: LIPITOR 80 MG PO (21:10)
[2025-05-14] MEDS: FIORICET 1 TAB PO (21:12)
[2025-05-14] MEDS: PERCOCET 5/325 1 TABLET PO (21:14)
[2025-05-14 22:50] VITALS: BP 120/72
[2025-05-15] MEDS: NSS 1000 IV ×2 (00:45→08:23)
--- NOTE | 2025-05-15 03:10 | DOWNTIME ---
There was a PA Semi Client [facility] Downtime on 05/15/2025 from 0100 to 05/15/2025 at 0255. Downtime documentation of patient's care, including medication administrations, has been reconciled in the electronic record per guidelines. Refer to the
patient's paper chart under the miscellaneous tab to see printed paper medication records and downtime forms.
[2025-05-15 03:53] VITALS: BP 112/73
[2025-05-15 05:41] LABS: Hematocrit 35.5 % (39.0-52.0); Hemoglobin 12.3 g/dL (13.0-18.0); Mean Corp Hgb Conc. 34.6 g/dL (33.0-37.0); Mean Corpuscular Volume 94.4 fL (80.0-94.0); Platelet Count 162 10^3/uL (130-400); Red Cell Dist. Width 12.5 % (11.5-14.5)
[2025-05-15] MEDS: ROXICODONE 10 MG PO ×2 (06:05→10:49)
[2025-05-15 06:08] LABS: Blood Urea Nitrogen 14 mg/dl (9-20); Calcium 9.9 mg/dl (8.4-10.2); Carbon Dioxide 25 mmol/L (22-30); Chloride 111 mmol/L (98-107); Estimated Creatinine Clearance > 125 ml/min; Glucose 112 mg/dl (70-99); Potassium 4.5 mmol/L (3.5-5.1); Sodium 139 mmol/L (135-145); eGFR > 60.00
[2025-05-15 08:09] VITALS: BP 129/84
[2025-05-15] MEDS: EFFEXOR XR 150 MG PO (08:24)
[2025-05-15] MEDS: ZESTRIL 5 MG PO (08:26)
[2025-05-15] MEDS: ASPIR LOW (ENTERIC COATED) 81 MG PO (08:26)
[2025-05-15] MEDS: LEVAQUIN 100 IV (08:26)
[2025-05-15] MEDS: LASIX 20 MG PO (08:26)
[2025-05-15] MEDS: LOPRESSOR PO (08:26)
--- NOTE | 2025-05-15 08:55 | W.DCSUMMARY ---
Discharge Summary
Discharge Data
Date of Admission: 05/14/25
Date of Discharge: 05/15/25
-
Pending Results: No
Discharge Plan
-
Patient Disposition: Home (Routine Discharge)
Discharge Diagnosis/Procedures: bladder stones , urinary retention
Condition: Good
Diet: No restrictions
Referrals:
Kavon Schroeder MD [Active, Urology]
Referral Note: call dr schroeder [phone] for follow up on voiding and prostate cancer follow up
UNKNOWN,NO INTERVIEW [Family Provider]
Prescriptions:
Continued
aspirin 81 MG tablet,delayed release (DR/EC)
81 mg PO DAILY Qty: 30 11RF
metoprolol tartrate 25 MG tablet
25 mg PO BID Qty: 60 11RF
venlafaxine [Effexor XR] 150 MG capsule,extended release 24hr
150 mg PO BID
oxycodone 10 MG tablet
10 mg PO 6XD
Patient Comments:
last fill 03/30/25 #180
Ubrelvy 100 MG tablet
100 mg PO DAILYPRN PRN (Reason: migraines)
atorvastatin 80 mg Tablet
80 mg PO HS
lisinopril 5 mg Tablet
5 mg PO DAILY
tamsulosin 0.4 MG capsule
0.4 mg PO BID
phenazopyridine [Pyridium] 100 mg tablet
100 mg PO TID PRN (Reason: Pain) Qty: 14 0RF
furosemide 20 mg tablet
20 mg PO DAILY
Tylenol
1,000 mg PO PRN PRN (Reason: pain )
Discharge Orders:
Discharge Patient (As Directed); Ordered 05/15/25
Ordered By: Kavon Schroeder
Discharge Date and Time
Print Language: NIGERIEN
--- NOTE | 2025-05-15 08:55 | W.DCSUMMARY ---
Discharge Summary
Discharge Data
Date of Admission: 05/14/25
Date of Discharge: 05/15/25
-
Pending Results: No
Hospital Course
The pt noé uneventful laser cystilithalopaxy He was stable over noght he will be discharged this am once it is determined via voiding trial if he can or cannlt void
Discharge Plan
-
Patient Disposition: Home (Routine Discharge)
Discharge Diagnosis/Procedures: bladder stones , urinary retention
Condition: Good
Diet: No restrictions
Referrals:
Kavon Schroeder MD [Active, Urology]
Referral Note: call dr schroeder [phone] for follow up on voiding and prostate cancer follow up
UNKNOWN,NO INTERVIEW [Family Provider]
Prescriptions:
Continued
aspirin 81 MG tablet,delayed release (DR/EC)
81 mg PO DAILY Qty: 30 11RF
metoprolol tartrate 25 MG tablet
25 mg PO BID Qty: 60 11RF
venlafaxine [Effexor XR] 150 MG capsule,extended release 24hr
150 mg PO BID
oxycodone 10 MG tablet
10 mg PO 6XD
Patient Comments:
last fill 03/30/25 #180
Ubrelvy 100 MG tablet
100 mg PO DAILYPRN PRN (Reason: migraines)
atorvastatin 80 mg Tablet
80 mg PO HS
lisinopril 5 mg Tablet
5 mg PO DAILY
tamsulosin 0.4 MG capsule
0.4 mg PO BID
phenazopyridine [Pyridium] 100 mg tablet
100 mg PO TID PRN (Reason: Pain) Qty: 14 0RF
furosemide 20 mg tablet
20 mg PO DAILY
Tylenol
1,000 mg PO PRN PRN (Reason: pain )
Discharge Orders:
Discharge Patient (As Directed); Ordered 11/19/25
Ordered By: Kavon Schroeder
Discharge Date and Time
Print Language: INDONESIAN
--- NOTE | 2025-05-15 10:41 | CM ---
CM following for discharge planning, discussed with RN and spoke with patient and his sister. Pt's sister will provide transport home today and will be at [facility] for curing pickling packer at 1PM today.
Plan: Discharge to home today with no identified needs. Transport via car/sister will be at [facility] entrance at 1PM.
[2025-05-15 11:00] VITALS: BP 131/74
== END 2025-05-15 12:27 | disposition home or self-care (01) ==
LOC: SDS 06:28
PROVIDERS: ATTENDING PHYSICIAN Specialist
DX: N21.0 Calculus in bladder (principal); R33.9 Retention of urine, unspecified
CPT/HCPCS: 52318; 80048; 81003; 81015; 85027; 87086; J1580